=== PATIENT | male | born 1995 | race Caucasian/White ===

== ENCOUNTER 2023-12-24 12:20 | Emergency (ER) | payer MEDICAID, SELFPAY ==
[2023-12-24 12:23] VITALS: BP 177/92; PULSE 120; TEMP 36.9; O2SAT 98; BMI 36.0
--- NOTE | 2023-12-24 12:33 | ED.DENTAL1 ---
HPI - Dental/Oral General Chief complaint: Dental/Oral Stated complaint: ABSCESS Time Seen by Provider: 12/24/23 12:25 Source: patient Mode of arrival: walk-in Limitations: no limitations History of Present Illness HPI Narrative: Patient is a angle of pain in his jaw area. Several nights ago he had a lot of discomfort in his lower right mid mandibular area but he says is not too bad right now. He just recently got a medical card and he knows he is got a lot of dental problems. He is hopeful to get into see a dentist since now he has this medical insurance. He has not run a fever. He does not have any difficulty swallowing. There is no obvious swelling of his face. He is not on any current antibiotics. He has not seen a dentist recently. Related Data Allergies Allergy/AdvReac Type Severity Reaction Status Date / Time No Known Drug Allergies Allergy Verified 12/24/23 12:27 Exam Narrative Exam Narrative: Well-hydrated well-nourished no obvious distress. Phonation swallowing respiratory effort is all normal. He has no tenderness or swelling of his right TM. The TM appears normal. He has no pain with pulling on the pinna or pushing on the tragus. No tenderness over the TMJ. He does have dental tenderness with percussion over teeth #3130 and 32. There is no intraoral abscess. There is no swelling of the gingival area. Constitutional Vital Signs, click to edit/add: Last Vital Signs Temp 98.5 F 12/24/23 12:23 Pulse 120 H 12/24/23 12:23 Resp 18 12/24/23 12:23 BP 177/92 H 12/24/23 12:23 Pulse Ox 98 12/24/23 12:23 O2 Del Method Room Air 12/24/23 12:23 Course Vital Signs Vital signs: Vital Signs Temperature 98.5 F 12/24/23 12:23 Pulse Rate 120 H 12/24/23 12:23 Respiratory Rate 18 12/24/23 12:23 Blood Pressure 177/92 H 12/24/23 12:23 Pulse Oximetry 98 12/24/23 12:23 Oxygen Delivery Method Room Air 12/24/23 12:23 Temperature 98.5 F 12/24/23 12:23 Pulse Rate 120 H 12/24/23 12:23 Respiratory Rate 18 12/24/23 12:23 Blood Pressure 177/92 H 12/24/23 12:23 Pulse Oximetry 98 12/24/23 12:23 Oxygen Delivery Method Room Air 12/24/23 12:23 MDM - Dental/Oral MDM Narrative Medical decision making narrative: Patient here with overall very poor dental hygiene especially on the maxillary area he is asymptomatic in this area but does have point tenderness with no obvious abscess on the roll lower right mid mandibular area. Will start him on clindamycin and he is planning on following up with dental evaluation Discharge Plan Discharge Stand Alone Forms: Portal Instructions Chief Complaint: Dental/Oral Clinical Impression: Toothache Patient Disposition: Home, Self-Care Time of Disposition Decision: 12:35 Print Language: Portuguese Additional Instructions: Clindamycin/start penicillin if that is too expensive. Use [id number] NSAIDs such as Aleve or ibuprofen/see dentist NASH Referrals: SHAZIA MORA [Primary Care Provider] - 1 week
== END 2023-12-24 12:45 | disposition home or self-care (01) ==
PROVIDERS: Emergency Provider Emergency Medicine Emergency Medical Services; PCP Internal Medicine Gastroenterology
DX: K08.89 Other specified disorders of teeth and supporting structures (principal)
CPT/HCPCS: 99283

== ENCOUNTER 2024-04-10 12:49 | Outpatient (OUT) | payer MEDICAID, SELFPAY ==
--- NOTE | 2024-04-10 12:54 | FL_ITS ---
The [address] [address] Patient Name: JAMES ACEVEDO MRN: [id number] date: 1995 Sex: M Assigned Patient Location: [place] Current Patient Location: [place] Accession/Order Number: [id number] Exam Date: 04/10/2024 13:15 Report Date: 04/10/2024 14:08 At the request of: DAYLIN SANCHEZ Procedure: FL modified barium swallow EXAMINATION: FL modified barium swallow HISTORY: difficulty swallowing R13.10 COMPARISON: No relevant comparison available. TECHNIQUE: A swallowing evaluation was performed with fluoroscopy in the usual manner. Standard level fluoroscopic mode of operation utilized. FINDINGS: ORAL PHASE: Normal deglutition. PHARYNGEAL PHASE: Normal swallowing. ASPIRATION: None. STRUCTURE: Normal. No visible obstruction, stricture, or dilatation. OTHER: Negative. FL/FL modified barium swallow IMPRESSION: Relatively normal study. Please see speech pathologist report for further discussion. Electronically authenticated by: FANNY QUACH Date: 04/10/2024 14:08
== END 2024-04-10 12:50 | disposition home or self-care (01) ==
LOC: FL 12:50
PROVIDERS: PCP Nurse Practitioner; Visit Provider Nurse Practitioner
DX: R13.10 Dysphagia, unspecified (principal)
CPT/HCPCS: 74230; 92611

== ENCOUNTER 2024-05-31 03:01 | Emergency (ER) | payer MEDICAID, SELFPAY ==
--- OUTSIDE RECORDS SUMMARY | 2024-05-31 03:16 | XMS_ITS | CCD ---
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 Name Role Phone BRANDO JEFFREY Attending Unavailable Karime, Loreto Lechuga Primary Care Physician Karime, DRAWER WAXER Loreto L Attending Unavailable Karime, DRAWER WAXER Loreto L Attending Unavailable Karime, DRAWER WAXER Loreto L Attending Unavailable Karime, DRAWER WAXER Loreto L Attending Unavailable Karime, DRAWER WAXER Loreto L Admitting Unavailable Karime, DRAWER WAXER Loreto L Referring Unavailable Karime, DRAWER WAXER Loreto L Attending Unavailable Agustín Manjarrez Attending Unavailable Karime, DRAWER WAXER Loreto L Attending Unavailable Allergies Allergy Classification Reported Allergen(s) Allergy Type Date of Onset Reaction(s) Facility Erythromycin / sulfiSOXAZOLE (1 source) Erythromycin / sulfiSOXAZOLE; Translations: [erythromycin-sul fisoxazole] Drug Allergy Anaphylaxis (disorder), Tongue swelling (finding) [facility] (2 sources) Erythromycin / sulfiSOXAZOLE; Translations: [Pediazole] Drug Allergy [facility] Medications Current Medications Medication Drug Class(es) Dates Sig (Normalized) Sig (Original) omeprazole 40 mg delayed release oral capsule (1 source) Proton Pump Inhibitor Start: 01-18-2024 take 1 capsule by mouth once daily omeprazole 40 mg Cap-DR 40 mg = 1 cap(s), Oral, Daily, # 90 cap(s), Refills(s) 3, Pharmacy: [id number], 166.8, cm, 01/18/24 13:14:00 EDT, Height/Length Dosing, 91.6, kg, 01/18/24 13:14:00 EDT, Weight Dosing Start Date: 01/18/24 Status: Ordered Problems Problem Classification Problem Date Documented Da te Episodic/Chronic Acute myocardial infarction (1 source) Myocardial infarction 01-18-2024 Chronic Anxiety disorders (1 source) Anxiety 01-18-2024 Chronic Asthma (1 source) Asthma 12-05-2013 Chronic Esophageal disorders (2 sources) Gastroesophageal reflux disease 12-05-2013 Chronic Headache; including migraine (1 source) Chronic headache disorder 01-18-2024 Episodic Heart valve disorders (1 source) Heart murmur 01-18-2024 Episodic Malignant neoplasm without specification of site (1 source) Malignant neoplastic disease 01-18-2024 Chronic Other eye disorders (1 source) Pain in eye 12-05-2013 Episodic Other gastrointestinal disorders (1 source) Altered bowel function 02-15-2024 Episodic Other injuries and conditions due to external causes (1 source) Injury of nose 01-18-2024 Episodic Karin-; endo-; and myocarditis; cardiomyopathy (except that caused by tuberculosis or sexually transmitted disease) (1 source) Heart valve disorder 12-05-2013 Chronic Residual codes; unclassified (1 source) Insomnia 01-18-2024 Episodic Substance-related disorders (2 sources) History of drug abuse; Translations: [Smoker] 01-18-2024 Chronic Comment on above: Added secondary to d ocumentation in Social History. Unclassified (1 source) Finding of sensation of abdomen 01-18-2024 Results Test Name Value Interpretation Reference Range [facility] Office/Clini c Noteon 03-14-2024 Family Medicine Office/Clinic Note Chief Complaint Patient here to discuss results C/O GERD sysptoms and dizziness sometimes HPI Staff Demario is a 28 year old male presenting to discuss results Pt had CT on 02/29/24 History of Present Illness pt presents today to go over ct results Review of Systems PHQ Score Initial Depression Screen Score: 0 SCORE Physical Exam Vitals & Measurements T: 36.4 ?C(Oral) HR: 78(Peripheral) BP: 128/78 HT: 66 in HT: 167.7 cm WT: 93.6 kg WT: 205.92 lb BMI: 33.28 General: alert, no acute distress ENMT: oral mucosa moist, no pharyngeal erythema or exudate Cardiovascular: regular rate and rhythm, normal peripheral perfusion Respiratory: Lungs CTA, respirations non labored Extremities: no deformity, no trauma Neurological: oriented x 4, LOC appropriate for age, CN II-XII intact, motor strength equal & normal bilaterally, speech normal Assessment/Plan 1. Difficulty swallowing (R13.10: Dysphagia, unspecified) barium swallow study ordered through [facility]. pt to call GI back since he canceled his appointment on 02/27. he feels like things just get stuck when eating. he has to have a drink at all times when eating. RTC 4 weeks Ordered: albuterol, 2 puff(s), Inhalation, q6hr, 8.5 gm, Refill(s) 0, [id number], 167.6, cm, 03/14/24 10:31:00 EDT, Height/Length Dosing, 93.6, kg, 03/14/24 10:31:00 EDT, Weight Dosing cefdinir, 300 mg = 1 cap(s), Oral, q12hr, X 21 day(s), # 42 cap(s), Refills(s) 0, Pharmacy: [id number], 167.6, cm, 03/14/24 10:31:00 EDT, Height/Length Dosing, 93.6, kg, 03/14/24 10:31:00 EDT, Weight Dosing 2. Shortness of breath (R06.02: Shortness of breath) albuterol inhaler sent to pharmacy Ordered: albuterol, 2 puff(s), Inhalation, q6hr, 8.5 gm, Refill(s) 0, [id number], 167.6, cm, 03/14/24 10:31:00 EDT, Height/Length Dosing, 93.6, kg, 03/14/24 10:31:00 EDT, Weight Dosing cefdinir, 300 mg = 1 cap(s), Oral, q12hr, X 21 day(s), # 42 cap(s), Refills(s) 0, Pharmacy: [id number], 167.6, cm, 03/14/24 10:31:00 EDT, Height/Length Dosing, 93.6, kg, 03/14/24 10:31:00 EDT, Weight Dosing 3. Chronic sinusitis of both maxillary sinuses (J32.0: Chronic maxillary sinusitis) CT results Bilateral sinusitis. will order antibiotic for 21 days. RTC 4 weeks to monitor symptoms Ordered: albuterol, 2 puff(s), Inhalation, q6hr, 8.5 gm, Refill(s) 0, [id number], 167.6, cm, 03/14/24 10:31:00 EDT, Height/Length Dosing, 93.6, kg, 03/14/24 10:31:00 EDT, Weight Dosing cefdinir, 300 mg = 1 cap(s), Oral, q12hr, X 21 day(s), # 42 cap(s), Refills(s) 0, Pharmacy: [facility]/pharm[id number], 167.6, cm, 03/14/24 10:31:00 EDT, Height/Length Dosing, 93.6, kg, 03/14/24 10:31:00 EDT, Weight Dosing 4. BMI 33.0-33.9,adult (Z68.33: Body mass index [BMI] 33.0-33.9, adult) BMI edcuation 5. Obese (E66.9: Obesity, unspecified) see above Follow-up No qualifying data available Problem List/Past Medical History Ongoing Abdominal cramping Acid reflux Aesthesioneurocytoma Anxiety BMI 33.0-33.9,adult Bowel habit changes Chronic GERD Chronic headaches Chronic sinusitis of both maxillary sinuses Difficulty swallowing Eye pain Heart attack Heart murmur History of drug use Insomnia Nasal trauma Obese Shortness of breath Smoker Historical Asthma Heart valve disorder Procedure/Surgical History Ingrown toenail... Medications Albuterol (Eqv-ProAir HFA) 90 mcg/inh inhalation aerosol, 2 puff(s), Inhalation, q6hr cefdinir 300 mg Cap, 300 mg= 1 cap(s), Oral, q12hr omeprazole 40 mg Cap-DR, 40 mg= 1 cap(s), Oral, Daily, 3 refills Allergies Pediazole (Anaphylaxis, Tongue swelling) Social History Alcohol Past, Beer, Wine, Liquor, 1-2 times per week, Alcohol use interferes with work or home: Yes. Drinks more than intended: Yes. Others hurt by drinking: No. Ready to change: No. Household alcohol concerns: No., 03/14/2024 Substance Abuse Past, Marijuana, 01/18/2024 Tobacco Former smoker, quit more than 30 days ago Tobacco Use:. Cigarettes, 14 year(s). Ready to change: No., 03/14/2024 Family History Anxiety: Mother. Epilepsy: Uncle. Schizophrenia: Mother. Stroke: Aunt and Grandparent. Immunizations Vaccine Date Status Comments SARS-CoV-2 (COVID-19) mRNA BNT-162b2 vax 10/11/2020 Recorded SARS-CoV-2 (COVID-19) mRNA BNT-162b2 vax 09/20/2020 Recorded diphtheria/pertussis , acel/tetanus adult 05/28/2011 Given Nursing Judgment [facility] Comment on above: Result Comment: Elec tronically Signed By: Loreto Sosa\.br\Date and Time Signed: 03/14/24 11:[address] Maxillofacial w/o Contras ton 03-01-2024 CT Maxillofacial w/o Contrast Exam Date/Time: 02/29/2024 17:28 EDT Reason for Exam: Nasal abscess;Other (please specify) Report Impression: Bilateral maxillary and ethmoid sinusitis as discussed CT Brain. Contrast medium: without contrast.. History: Facial congestion.. Technical factors: CT maxillofacial was obtained and formatted as 1 mm axial images. Sagittal and coronal reconstruction obtained during postprocessing. Radiopaque cutaneous marker placed anterior to base right maxillary sinus. Comparison: None. Findings: Frontal sinuses patent. Mild bilateral opacification ethmoid sinuses. Sphenoid sinuses patent. Mild bilateral mucosal thickening maxillary sinuses. Imaged portions mastoid air cells well pneumatized. Nasal septum midline. Right ostiomeatal complex patent. Ostiomeatal complex shows mucosal thickening. No fracture. No bone lesion. Bilateral ocular globes, extraocular muscles, optic nerves, retrobulbar fat without anomaly. All CT scans at this facility use dose modulation, iterative reconstruction, and/or weight based dosing when appropriate to reduce radiation dose to as low as reasonably achievable. Report Ordering Provider: Loreto Schaffer FINAL REPORT Dictated: 03/01/2024 4:30 pm Kwame Bob MD Signed (Electronic Signature): 03/01/2024 4:30 pm Signed by: Kwame Bob MD Transcribed by: ARNEL Technologist: [facility] Consent for Treatmenton Consent for Treatment [id number] #[id number] Normal [facility] Medicine Office/Clini c Noteon 02-15-2024 [facility] Medicine Office/Clinic Note HPI Staff Demario is a 28 year old male presenting for 1 month follow up NIKHIL 01/18/24 Abdominal cramping started omeprazole Pt states he never started the omeprazole and one day after the NIKHIL he started having intermittent mucous in stool. Pt continues to have abdominal cramping. Denies any blood in stool. Intermittent loose/diarrhea stool to sometimes normal. History of Present Illness pt follows up for GI issues Review of Systems PHQ Score Initial Depression Screen Score: 0 SCORE Physical Exam Vitals & Measurements HR: 112(Peripheral) RR: 18 BP: 168/88 SpO2: 99% HT: 66 in HT: 166.8 cm WT: 92.9 kg WT: 204.38 lb BMI: 33.39 General: alert, no acute distress ENMT: oral mucosa moist, no pharyngeal erythema or exudate Cardiovascular: regular rate and rhythm, normal peripheral perfusion Respiratory: Lungs CTA, respirations non labored Extremities: no deformity, no trauma Neurological: oriented x 4, LOC appropriate for age, CN II-XII intact, motor strength equal & normal bilaterally, speech normal Assessment/Plan 1. Bowel habit changes (R19.4: Change in bowel habit) pt used to have BM every couple of days. now having up to 5-10 per day now. has noticed a lot of mucous in stool Ordered: [facility] Amb[facility] Referral 2. Abdominal cramping (R10.9: Unspecified abdominal pain) pt did not start taking medication Ordered: [facility] Ambulatory Referral 3. Chronic GERD (K21.9: Gastro-esophageal reflux disease without esophagitis) did not start omeprazole Ordered: [facility] Internal Ambulatory Referral 4. Smoker (F17.200: Nicotine dependence, unspecified, uncomplicated) consider not smoking Ordered: [facility] Internal Ambulatory Referral 5. BMI 32.0-32.9,adult (Z68.32: Body mass index [BMI] 32.0-32.9, adult) BMI education complete Ordered: [facility] Internal Ambulatory Referral Follow-up No qualifying data available Problem List/Past Medical History Ongoing Abdominal cramping Acid reflux Aesthesioneurocytoma Anxiety Bowel habit changes Chronic GERD Chronic headaches Eye pain Heart attack Heart murmur History of drug use Insomnia Nasal trauma Smoker Historical Asthma Heart valve disorder Procedure/Surgical History Ingrown toenail... Medications omeprazole 40 mg Cap-DR, 40 mg= 1 cap(s), Oral, Daily, 3 refills Allergies Pediazole (Anaphylaxis, Tongue swelling) Social History Alcohol Current, Beer, Wine, Liquor, 1-2 times per week, Alcohol use interferes with work or home: Yes. Drinks more than intended: Yes. Others hurt by drinking: No. Ready to change: No. Household alcohol concerns: No., 01/18/2024 Substance Abuse Past, Marijuana, 01/18/2024 Tobacco 10 or more cigarettes (1/2 pack or more)/day in last 30 days Tobacco Use:. Cigarettes, 14 year(s). Ready to change: No., 02/15/2024 Family History Anxiety: Mother. Epilepsy: Uncle. Schizophrenia: Mother. Stroke: Aunt and Grandparent. Immunizations Vaccine Date Status Comments SARS-CoV-2 (COVID-19) mRNA BNT-162b2 vax 10/11/2020 Recorded SARS-CoV-2 (COVID-19) mRNA BNT-162b2 vax 09/20/2020 Recorded diphtheria/pertussis , acel/tetanus adult 05/28/2011 Given Nursing Judgment [facility] Comment on above: Result Comment: Elec tronically Signed By: Loreto Sosa\.br\Date and Time Signed: 02/15/24 15:02 EDT Ambulatory Visit Summaryon 0 01-18-2024 Ambulatory Visit Summary DEMARIO ACEVEDO JR :1995 Visit Date:01/18/2024 Ambulatory Visit Instructions Your Diagnosis Chronic GERD Abdominal cramping History of drug use BMI 32.0-32.9,adult Heavy smoker Your Care Team Attending Physician - Loreto Sosa Primary Care Physician - Loreto Sosa This Is Your Medications List omeprazole (Omeprazole 20 mg Cap - DR) Procedures Performed Ingrown toenail... Discharge Vitals Heart Rate (Peripheral) 104 Respiratory Rate 18 Blood Pressure 130/84 Height 166.8 cm Height 66 in Weight 91.6 kg Weight 201.52 lb BMI 32.92 What to do next Scheduled Follow-Up Appointments Sunday 2:40 PM EDT With: Loreto Sosa Where: [facility] Missy Normal [facility] Office/Clini c Noteon 01-18-2024 Family Medicine Office/Clinic Note HPI Staff Demario is a 28 year old male presenting to establish care Establish Care: History: Any previous diagnosis: Anxiety, Asthma, Drug dependency, Alcohol, headaches, heart murmur, insomnia, Bicuspid heart valve(aorta), Gerd History of seeing any specialist: hasn't seen a 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 Pt states he does have bad teeth, pt is calling set up an appointment with dentist. Has abscess right lower side of both back molar went to [facility] 12/24/23 Did start him on Clindamycin and completed ATB. Does have lump on right side of neck under jaw would like looked at it. Pt states when he was 14 he was snorting pills on left side and he has been clean for 11 year. pt states intermittently when he eats sometimes food will feels like food get stuck and nose and sometime comes out left eye. He feels like his left side of nose is always stuffed up. pt has never seen ENT History of Present Illness pt presents today to establish care Review of Systems PHQ Score Initial Depression Screen Score: 0 SCORE Physical Exam Vitals & Measurements HR: 104(Peripheral) RR: 18 BP: 130/84 SpO2: 95% HT: 66 in HT: 166.8 cm WT: 91.6 kg WT: 201.52 lb BMI: 32.92 General: alert, no acute distress ENMT: oral mucosa moist, no pharyngeal erythema or exudate Cardiovascular: regular rate and rhythm, normal peripheral perfusion Respiratory: Lungs CTA, respirations non labored Extremities: no deformity, no trauma Neurological: oriented x 4, LOC appropriate for age, CN II-XII intact, motor strength equal & normal bilaterally, speech normal Assessment/Plan 1. Chronic GERD (K21.9: Gastro-esophageal reflux disease without esophagitis) needs refills on medicaiton 2. Abdominal cramping (R10.9: Unspecified abdominal pain) pt having difficulty passing gas. has tried taking gas-x but that makes it worse. he has to manually push on his stomach to get gas to move. RTC 4 weeks for follow up 3. 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 will refer to ENT after CT results are back 4. Nasal trauma (S09.92XA: Unspecified injury of nose, initial encounter) pt snorting drugs through left side of nostril for many years. Has been clean for 11 years. but has not had insurance until recently. 5. BMI 32.0-32.9,adult (Z68.32: Body mass index [BMI] 32.0-32.9, adult) BMI education complete 6. Heavy smoker (F17.200: Nicotine dependence, unspecified, uncomplicated) consider not smoking Follow-up No qualifying data available Problem List/Past Medical History Ongoing Abdominal cramping Acid reflux Aesthesioneurocytoma Anxiety Chronic GERD Chronic headaches Eye pain Heart attack Heart murmur History of drug use Insomnia Nasal trauma Smoker Historical Asthma Heart valve disorder Procedure/Surgical History Ingrown toenail... Medications Omeprazole 20 mg Cap - DR, 20 mg, Oral, Daily Allergies Pediazole (Anaphylaxis, Tongue swelling) Social History Alcohol Current, Beer, Wine, Liquor, 1-2 times per week, Alcohol use interferes with work or home: Yes. Drinks more than intended: Yes. Others hurt by drinking: No. Ready to change: No. Household alcohol concerns: No., 01/18/2024 Substance Abuse Past, Marijuana, 01/18/2024 Tobacco 10 or more cigarettes (1/2 pack or more)/day in last 30 days Tobacco Use:. Cigarettes, 14 year(s). Ready to change: No., 01/18/2024 Family History Anxiety: Mother. Epilepsy: Uncle. Schizophrenia: Mother. Stroke: Aunt and Grandparent. Immunizations Vaccine Date Status Comments SARS-CoV-2 (COVID-19) mRNA BNT-162b2 vax 10/11/2020 Recorded SARS-CoV-2 (COVID-19) mRNA BNT-162b2 vax 09/20/2020 Recorded diphtheria/pertussis , acel/tetanus adult 05/28/2011 Given Nursing Judgment [facility] Comment on above: Result Comment: Elec tronically Signed By: Karime DRAWER WAXER, Loreto L\.br\Date and Time Signed: 01/18/24 13:54 EDT Insurance Correspondenceon 0 01-18-2024 Insurance Correspondence [id number] 1#1.00TIFF Normal [facility] XR CHEST (2 VW)on 02-15-2019 XR CHEST (2 VW) XR CHEST (2 VW): HISTORY: Chest pain with inspiration, decreased breath sounds lower lung rust. COMPARISON: None. FINDINGS: Frontal and lateral views of the chest are provided. The cardiomediastinal silhouette is unremarkable. The lungs are normally aerated. There is no focal infiltrate, pleural effusion, or pneumothorax present. The bones appear unremarkable. IMPRESSION: Negative acute chest. Interpreted by: Aman Knowles MD Signed by: Aman Knowles MD 02/15/19 Final result Normal [facility] Encounters Encounter Date Encounter Type Care Provider Facility Start: 05-08-2024 ambulatory DRAWER WAXER Loreto L Karime Facil ity:[facility] Start: 04-22-2024 End: 04-22-2024 ambulatory DRAWER WAXER Loreto L Karime Facility:[facility] Start: 03-14-2024 End: 03-14-2024 ambulatory DRAWER WAXER Loreto L Karime Facility:[facility] Start: 02-29-2024 End: 02-29-2024 ambulatory DRAWER WAXER Loreto L Karime Facility:[facility] Start: 02-29-2024 End: 02-29-2024 Patient encounter procedure Loreto L Karime [facility] Start: 02-25-2024 ambulatory Agustín Logan lity:Analia meraz Start: 02-19-2024 ambulatory DRAWER WAXER Loreto Karime Facilit y:Analia meraz Start: 02-15-2024 End: 02-15-2024 ambulatory DRAWER WAXER Loreto L Karime Facility:[facility] Start: 01-18-2024 End: 01-18-2024 ambulatory DRAWER WAXER Loreto L Karime Facility:[facility] Start: 01-15-2024 ambulatory DRAWER WAXER Loreto Karime Facilit y:[facility] Start: 02-14-2019 End: 02-14-2019 Emergency department patient visit CARRIETERRIBENNIE JEFFREY [facility] Procedures Date Procedure Procedure Detail Performing Clinician Start: 02-14-2019 Radiologic exam ches t 2 views BRANDO WOJCIECH Ingrowing nail (disorder) Olivia di Karime Immunizations Immunization Date Immunization Notes Care Provider Fa cility 10-11-2020 SARS-CoV-2 (COVID-19 ) mRNA BNT-162b2 vax Loreto Karime [facility] 09-20-2020 SARS-CoV-2 (COVID-19 ) mRNA BNT-162b2 vax Loreto Karime [facility] 05-28-2011 tetanus toxoid, redu michele diphtheria toxoid, and acellular pertussis vaccine, adsorbed Loreto Karime [facility] Comment on above: Early/Late Reason: N ursing Judgment Payers Date Payer Category Payer Self-pay 2019 Medicaid [id number] 1995 Unknown [id number] 2.16.84 [id number] 1995 Unknown [id number] 2.16.8 [id number] 1995 Unknown [id number] 2.16.8 [id number] 1995 Unknown [id number] 2.16.8 [id number] 1993 Unknown [id number] 2.16.8 [id number] 1995 Unknown [id number] 2.16.8 [id number] 1993 Unknown [id number] 2.16.8 [id number] 1995 Unknown [id number] 2.16.8 [id number] 1995 Unknown [id number] 2.16.8 [id number] Social History Date Type Detail Facility Start: 02-15-2024 Tobacco smoking status Heavy t obacco smoker (finding) [facility] [place] Sex Assigned At Male [facility] Evaluation + Plan note Note Date & Type Note Facility Evaluation + Plan note No data available for this section [facility] Hospital Discharge instructions Note Date & Type Note Facility Hospital Discharge instructions No data available for this section [facility] Progress note Note Date & Type Note Facility Progress note No data available for this section [facility] Summary Purpose Family History No Family History Records Found No data available for this section No Family History Records Found Advance Directives No Advanced Directives Records FoundNo Advanced Directives Records Found Additional Source Comments (unrecognized sect ion and content) No Status Records FoundNo Status Records Found INFORMATION SOURCE (unrecogn ized section and content) DATE CREATED AUTHOR 02/25/2019 Simran mcguire DATE CREATED AUTHOR AUTHOR'S ORGANIZ ATION 04/25/2024 [facility] Patient Care team informatio n (unrecognized section and content) Personnel Name: Loreto Sosa Address: Address: [address] [place] [address]- FOR RECORDS PERTAINING TO PATIENTS WHO ARE OR HAVE BEEN ENROLLED IN A CHEMICAL DEPENDENCY/SUBSTANCEABUSE PROGRAM, SOME INFORMATION MAY BE OMITTED. This clinical summary was aggregated from multiple sources. Caution should be exercised in using it in the provision of clinical care. This summary normalizes information from multiple sources, and as a consequence, information in this document may materially change the coding, format and clinical context of patient data. In addition, data may be omitted in some cases. CLINICAL DECISIONS SHOULD BE BASED ON THE PRIMARY CLINICAL RECORDS. [facility]. provides no warranty or guarantee of the accuracy or completeness of information in this document.
[2024-05-31 03:20] VITALS: BP 145/96; PULSE 100; TEMP 36.9; O2SAT 97; BMI 33.7
--- NOTE | 2024-05-31 03:44 | ED.ABDPAIN1 ---
HPI - Abdominal Pain General Chief Complaint: Abdominal Pain Stated Complaint: abd pain Time Seen by Provider: 05/31/24 03:26 Source: patient Mode of arrival: walk-in Limitations: no limitations History of Present Illness HPI narrative: presents complaining of pain of his left CVA and LUQ. He then holds his left lower rib cage as site of pain. States started yesterday AM and has continued but not as intense as initially. Has not vomited but describes his food feeling like it wanted to come back up. History of GERD for which he takes prilosec. No dyspnea. No fever or urinary complaint Related Data Allergies Allergy/AdvReac Type Severity Reaction Status Date / Time No Known Drug Allergies Allergy Verified 05/31/24 03:20 Review of Systems ROS Status of ROS 10 or more systems reviewed and unremarkable except as noted in history and below PFSH PFSH Social History Little interest or pleasure in doing things: not at all Feeling down, depressed, or hopeless: not at all Exam Constitutional Vital Signs, click to edit/add: Last Vital Signs Temp 98.5 F 05/31/24 03:20 Pulse 100 H 05/31/24 03:20 Resp 18 05/31/24 03:20 BP 145/96 H 05/31/24 03:20 Pulse Ox 97 05/31/24 03:20 O2 Del Method Room Air 05/31/24 03:20 Common normals: no apparent distress, average body habitus, oriented x3, no limitations, healthy appearing, alert and well nourished [facility] Common normals: normocephalic and head/scalp atraumatic Eye Common normals: PERRL and EOMs intact bilaterally Respiratory Common normals: normal respiratory effort and no retractions Cardio Common normals: regular rate, regular rhythm, S1 normal heart sound and S2 normal heart sound GI Common normals: Normal to inspection, nondistended, normoactive bowel sounds present, soft to palpation and non-tender Back & Pelvis Common normals: no CVA tenderness Extremity Common normals: normal to inspection and full ROM Neuro Common normals: oriented x3, CN's II-XII intact bilaterally and moves all extremities Psych Appearance: grossly normal Course Vital Signs Vital signs: Vital Signs Temperature 98.5 F 05/31/24 03:20 Pulse Rate 100 H 05/31/24 03:20 Respiratory Rate 18 05/31/24 03:20 Blood Pressure 145/96 H 05/31/24 03:20 Pulse Oximetry 97 05/31/24 03:20 Oxygen Delivery Method Room Air 05/31/24 03:20 Temperature 98.5 F 05/31/24 03:20 Pulse Rate 100 H 05/31/24 03:20 Respiratory Rate 18 05/31/24 03:20 Blood Pressure 145/96 H 05/31/24 03:20 Pulse Oximetry 97 05/31/24 03:20 Oxygen Delivery Method Room Air 05/31/24 03:20 MDM - Abdominal Pain MDM Narrative Medical decision making narrative: patient presents with abdominal pain but points to the lower left chest area also. He is a poor historian. exam with mild LUQ tenderness. No fever or urinary symptoms. CT studies of chest and abdomen neg and labs neg as well. Patient discharged home to follow up with his doctor Lab Data Labs: Lab Results 05/31/24 05/31/24 Range/Units 03:55 04:00 WBC 7.8 (4.0-11.0) 10^3/uL RBC 5.67 (4.70-6.10) 10^6/uL Hgb 16.8 (14.0-18.0) g/dL Hct 49.3 (42.0-54.0) % MCV 86.9 (80.0-94.0) fL MCH 29.6 (25.9-34.0) pg MCHC 34.1 (29.9-35.2) g/dL RDW 12.4 (11.0-15.0) % Plt Count 218 (150-450) 10^3/uL MPV 10.5 (9.5-13.5) fL Neut % (Auto) 59.5 (43.0-75.0) % Lymph % (Auto) 25.4 (20.5-60.0) % [place] % (Auto) 10.3 (1.7-12.0) % Eos % (Auto) 3.2 (0.9-7.0) % Baso % (Auto) 1.3 (0.2-2.0) % Neut # (Auto) 4.7 (1.4-6.5) 10^3/uL Lymph # (Auto) 2.0 (1.2-3.8) 10^3/uL [place] # (Auto) 0.8 (0.3-0.8) 10^3/uL Eos # (Auto) 0.3 (0.0-0.7) 10^3/uL Baso # (Auto) 0.1 (0.0-0.1) 10^3/uL Abs Immat Gran (auto) 0.02 (0.00-0.03) 10^3/uL Imm/Tot Granulo (auto) 0.3 (0.0-0.5) % Sodium 137 (136-145) mmol/L Potassium 3.8 (3.5-5.1) mmol/L Chloride 98 (98-107) mmol/L Carbon Dioxide 31.5 (21.0-32.0) mmol/L Anion Gap 11.3 BUN 9.0 (7.0-18.0) mg/dL Creatinine 1.21 (0.70-1.30) mg/dL Est GFR ( Amer) >60 (>=60) Est GFR (Non-Af Amer) >60 (>=60) BUN/Creatinine Ratio 7.4 Glucose 104 (74-106) mg/dL Lactate 1.0 (0.4-2.0) mmol/L Calcium 9.2 (8.5-10.1) mg/dL Total Bilirubin 0.7 (0.2-1.0) mg/dL AST 22 (15-37) U/L ALT 51 (16-63) U/L Alkaline Phosphatase 94 (46-116) U/L Troponin I High Sens <4.0 L (4.0-76.1) pg/mL Total Protein 7.7 (6.4-8.2) g/dL Albumin 4.2 (3.4-5.0) g/dL Globulin 3.5 g/dL Albumin/Globulin Ratio 1.2 Urine Color Lt. yellow (YELLOW) Urine Clarity Clear (CLEAR) Urine pH 6.0 (5.0-9.0) Ur Specific [place] <=1.005 A (1.005-1.025) Urine Protein Negative (NEG/TRACE) mg/dL Urine Glucose (UA) Negative (NEGATIVE) mg/dL Urine Ketones Negative (NEGATIVE) mg/dL Urine Occult Blood Negative (NEGATIVE) Urine Nitrite Negative (NEGATIVE) Urine Bilirubin Negative (NEGATIVE) Urine Urobilinogen 0.2 (0.2-1.0) EU/dL Ur Leukocyte Esterase Negative (NEGATIVE) Discharge Plan Discharge Chief Complaint: Abdominal Pain Clinical Impression: Abdominal pain Patient Disposition: Home, Self-Care Mode of Transportation: Private Vehicle Print Language: [place]er Instructions: Abdominal Pain (ED) Referrals: DAYLIN SANCHEZ [Primary Care Provider] - 1 week
--- NOTE | 2024-05-31 03:47 | CT_ITS ---
[address] [address] Patient Name: JAMES ACEVEDO MRN: [id number] date: 1995 Sex: M Assigned Patient Location: ER Current Patient Location: ER Accession/Order Number: [id number] Exam Date: 05/31/2024 04:08 Report Date: 05/31/2024 05:18 At the request of: CHELSI KOTHARI Procedure: CT angio chest EXAMINATION: CT angio chest, CT abdomen pelvis w con HISTORY: left sided pain COMPARISON: No relevant comparison available. TECHNIQUE: Axial, Coronal, and Sagittal CT images were obtained without and with IV contrast. Dose reduction techniques were achieved by using automated exposure control and/or adjustment of mA and/or kV according to patient size and/or use of iterative reconstruction technique. FINDINGS: LUNGS: No visible pulmonary disease. PLEURA: No mass or effusion. VASCULATURE: No visible pulmonary arterial thrombus or attenuation. TANYA: No mass or adenopathy. MEDIASTINUM: No mass or adenopathy. CARDIAC: No enlargement or pericardial effusion Coronary arteries: Absent calcification CHEST WALL: No mass or axillary adenopathy. LIVER: No enlargement, atrophy, abnormal density, or significant focal lesion. BILIARY: No dilatation or calcification. PANCREAS: No lesion, fluid collection, ductal dilatation, or atrophy. SPLEEN: No enlargement or focal lesion. ADRENALS: No mass or enlargement. KIDNEYS: No mass, obstruction, or calcification. BOWEL/MESENTERY: No visible mass, obstruction, or bowel wall thickening. Normal appendix AORTA/VASCULAR: No aortic aneurysm or dissection RETROPERITONEUM: No mass or adenopathy. ABDOMINAL WALL: No mass or hernia. BONES: No bony lesion or fracture. OTHER: Negative. CT/CT angio chest IMPRESSION: No central pulmonary thromboembolic disease Clear lungs No acute intraperitoneal abnormality No aortic aneurysm or dissection Electronically authenticated by: KRISTEN CALDERA Date: 05/31/2024 05:18
--- NOTE | 2024-05-31 03:47 | CT_ITS ---
[address] [address] Patient Name: JAMES ACEVEDO MRN: [id number] date: 1995 Sex: M Assigned Patient Location: ER Current Patient Location: ER Accession/Order Number: [id number] Exam Date: 05/31/2024 04:08 Report Date: 05/31/2024 05:18 At the request of: CHELSI KOTHARI Procedure: CT abdomen pelvis w con EXAMINATION: CT angio chest, CT abdomen pelvis w con HISTORY: left sided pain COMPARISON: No relevant comparison available. TECHNIQUE: Axial, Coronal, and Sagittal CT images were obtained without and with IV contrast. Dose reduction techniques were achieved by using automated exposure control and/or adjustment of mA and/or kV according to patient size and/or use of iterative reconstruction technique. FINDINGS: LUNGS: No visible pulmonary disease. PLEURA: No mass or effusion. VASCULATURE: No visible pulmonary arterial thrombus or attenuation. TANYA: No mass or adenopathy. MEDIASTINUM: No mass or adenopathy. CARDIAC: No enlargement or pericardial effusion Coronary arteries: Absent calcification CHEST WALL: No mass or axillary adenopathy. LIVER: No enlargement, atrophy, abnormal density, or significant focal lesion. BILIARY: No dilatation or calcification. PANCREAS: No lesion, fluid collection, ductal dilatation, or atrophy. SPLEEN: No enlargement or focal lesion. ADRENALS: No mass or enlargement. KIDNEYS: No mass, obstruction, or calcification. BOWEL/MESENTERY: No visible mass, obstruction, or bowel wall thickening. Normal appendix AORTA/VASCULAR: No aortic aneurysm or dissection RETROPERITONEUM: No mass or adenopathy. ABDOMINAL WALL: No mass or hernia. BONES: No bony lesion or fracture. OTHER: Negative. CT/CT abdomen pelvis w con IMPRESSION: No central pulmonary thromboembolic disease Clear lungs No acute intraperitoneal abnormality No aortic aneurysm or dissection Electronically authenticated by: KRISTEN CALDERA Date: 05/31/2024 05:18
[2024-05-31 04:00] LABS: Basophils Absolute Auto 0.1 10^3/uL (0.0-0.1); Basophils Percent Auto 1.3 % (0.2-2.0); Eosinophils Absolute Auto 0.3 10^3/uL (0.0-0.7); Eosinophils Percent Auto 3.2 % (0.9-7.0); Hematocrit 49.3 % (42.0-54.0); Hemoglobin 16.8 g/dL (14.0-18.0); Immature Granulocytes Abs Auto 0.02 10^3/uL (0.00-0.03); Immature Granulocytes Pct Auto 0.3 % (0.0-0.5); Lymphocytes Percent Auto 25.4 % (20.5-60.0); Mean Corpuscular HGB Conc 34.1 g/dL (29.9-35.2); Mean Corpuscular Hemoglobin 29.6 pg (25.9-34.0); Mean Corpuscular Volume 86.9 fL (80.0-94.0); Mean Platelet Volume 10.5 fL (9.5-13.5); Monocytes Absolute Auto 0.8 10^3/uL (0.3-0.8); Monocytes Percent Auto 10.3 % (1.7-12.0); Neutrophils Absolute Auto 4.7 10^3/uL (1.4-6.5); Neutrophils Percent Auto 59.5 % (43.0-75.0); Platelet Count 218 10^3/uL (150-450); Red Blood Count 5.67 10^6/uL (4.70-6.10); Red Cell Distribution Width 12.4 % (11.0-15.0); White Blood Count 7.8 10^3/uL (4.0-11.0)
[2024-05-31 04:04] LABS: Bilirubin Urine NEGATIVE (NEGATIVE); Blood Urine NEGATIVE (NEGATIVE); Clarity Urine CLEAR (CLEAR); Color Urine LT. YELLOW (YELLOW); Glucose Urine UA NEGATIVE (NEGATIVE); Ketones Urine NEGATIVE (NEGATIVE); Leukocyte Esterase Urine NEGATIVE (NEGATIVE); Nitrite Urine NEGATIVE (NEGATIVE); Protein Urine NEGATIVE (NEG/TRACE); Specific Gravity Urine <=1.005 (1.005-1.025); Urobilinogen Urine 0.2 EU/dL (0.2-1.0)
[2024-05-31 04:06] LABS: Urine Microscopic Indicated NO
[2024-05-31 04:17] LABS: Alanine Aminotransferase 51 U/L (16-63); Albumin Globulin Ratio 1.2; Albumin Level 4.2 g/dL (3.4-5.0); Alkaline Phosphatase 94 U/L (46-116); Anion Gap 11.3; Aspartate Amino Transferase 22 U/L (15-37); BUN Creatinine Ratio 7.4; Bilirubin Total 0.7 mg/dL (0.2-1.0); Calcium 9.2 mg/dL (8.5-10.1); Carbon Dioxide 31.5 mmol/L (21.0-32.0); Chloride 98 mmol/L (98-107); Estimated GFR (African America >60 (>=60); Estimated GFR (Non-African Ame >60 (>=60); Globulin 3.5 g/dL; Glucose 104 mg/dL (74-106); Potassium 3.8 mmol/L (3.5-5.1); Sodium 137 mmol/L (136-145); Total Protein 7.7 g/dL (6.4-8.2)
[2024-05-31 04:19] LABS: Troponin I High Sensitivity <4.0 pg/mL (4.0-76.1)
== END 2024-05-31 05:57 | disposition home or self-care (01) ==
PROVIDERS: Emergency Provider Internal Medicine; PCP Nurse Practitioner
DX: R10.9 Unspecified abdominal pain (principal); K21.9 Gastro-esophageal reflux disease without esophagitis; Z79.899 Other long term (current) drug therapy
CPT/HCPCS: 36415; 71275; 74177; 80053; 81003; 83605; 84484; 85025; 99285; Q9967

== ENCOUNTER 2025-02-08 17:48 | Emergency (ER) | payer MEDICAID, SELFPAY ==
[2025-02-08 17:54] VITALS: BP 144/96; PULSE 95; TEMP 36.9; O2SAT 98; BMI 27.4
--- OUTSIDE RECORDS SUMMARY | 2025-02-08 17:57 | XMS_ITS | CCD ---
Author Organization [facility] Care Team Providers Care Test Deskman Name Role Phone BRANDO JEFFREY Attending Unavailable Karime Loreto L Primary Care Physician Agustín Manjarrez. Attending Unavailable Karime, REFRIGERATION SERVICE TECHNICIAN Loreto L Attending Unavailable Karime, REFRIGERATION SERVICE TECHNICIAN Loreto L Attending Unavailable Karime, REFRIGERATION SERVICE TECHNICIAN Loreto L Attending Unavailable Karime, REFRIGERATION SERVICE TECHNICIAN Loreto L Attending Unavailable Karime, REFRIGERATION SERVICE TECHNICIAN Loreto L Attending Unavailable Karime, REFRIGERATION SERVICE TECHNICIAN Loreto L Attending Unavailable Mouchli Mohamad A. Admitting Unavailable Mouchli, Mohamad A. Attending Unavailable Mouchli, Mohamad A. Referring Unavailable Karime, REFRIGERATION SERVICE TECHNICIAN Loreto L Attending Unavailable Karime, REFRIGERATION SERVICE TECHNICIAN Loreto L Referring Unavailable Karime, REFRIGERATION SERVICE TECHNICIAN Loreto L Admitting Unavailable Mouchli, Mohamad A. Attending Unavailable Mouchli, Mohamad A. Attending Unavailable Mouchli, Mohamad A. Admitting Unavailable Mouchli, Mohamad A. Attending Unavailable Mouchli, Mohamad A. Referring Unavailable Allergies Allergy Classification Reported Allergen(s) Allergy Type Date of Onset Reaction(s) Facility Erythromycin / sulfiSOXAZOLE (1 source) Erythromycin / sulfiSOXAZOLE; Translations: [erythromycin-sul fisoxazole] Drug Allergy Anaphylaxis (disorder), Tongue swelling (finding) [facility] (7 sources) Erythromycin / sulfiSOXAZOLE; Translations: [erythromycin-sul fisoxazole] Drug Allergy Anaphylaxis (disorder), Tongue swelling (finding) [facility] Medications Current Medications Medication Drug Class(es) Dates Sig (Normalized) Sig (Original) busPIRone hydrochloride 5 mg oral tablet (1 source) Start: 07-23-2024 take 1 tablet by mouth three times daily, then take 2 tablets by mouth three times daily busPIRone 5 mg Tab 5 mg = 1 tab(s), Oral, TID, increase to 10mg TID after 2 weeks, # 90 tab(s), Refills(s) 4, Pharmacy: [facility]/pharmacy #[id number], 165, cm, 07/23/24 13:27:00 EDT, Height/Length Dosing, 85, kg, 07/23/24 13:27:00 EDT, Weight Dosing Start Date: 07/23/24 Status: Ordered Fiber Tab (4 sources) Start: 06-25-2024 take 1 tablet by mouth four times daily Fiber Tabs mg, Oral, QID, Refills(s) 0, Prophylaxis Start Date: 06/25/24 Status: Ordered Start: 06-25-2024 take 1 tablet by judy th four times daily Fiber Tabs mg, Oral, QID, Refills(s) 0 Start Date: 06/25/24 Status: Ordered hyoscyamine sulfate 0.125 mg oral tablet (1 source) Start: 07-23-2024 take 1 tablet by mouth four times daily as needed for muscle spasms Levsin 0.125 mg SL Tab 0.125 mg = 1 tab(s), Oral, QID, PRN for spasm, # 40 tab(s), Refills(s) 0, Pharmacy: [facility]/pharmacy #[id number], 165, cm, 07/23/24 13:27:00 EDT, Height/Length Dosing, 85, kg, 07/23/24 13:27:00 EDT, Weight Dosing Start Date: 07/23/24 Status: Ordered omeprazole 40 mg delayed release oral capsule (5 sources) Proton Pump Inhibitor Start: 05-08-2024 End: 05-03-2025 take 1 capsule by mouth once daily omeprazole 40 mg Cap-DR 40 mg = 1 cap(s), Oral, Daily, X 90 day(s), # 90 cap(s), Refills(s) 3, Pharmacy: [facility]/pharmacy #[id number], 167, cm, 05/08/24 13:30:00 EDT, Height/Length Dosing, 95.3, kg, 05/08/24 13:30:00 EDT, Weight Dosing Start Date: 05/08/24 Stop Date: 05/03/25 Status: Ordered Start: 01-18-2024 take 1 capsule by [facility] once daily omeprazole 40 mg Cap-DR 40 mg = 1 cap(s), Oral, Daily, # 90 cap(s), Refills(s) 3, Pharmacy: [facility]/pharmacy #[id number], 166.8, cm, 01/18/24 13:14:00 EDT, Height/Length Dosing, 91.6, kg, 01/18/24 13:14:00 EDT, Weight Dosing Start Date: 01/18/24 Status: Ordered Completed/Discontinued Medications Medication Drug Class(es) Dates Sig (Normalized) Sig (Original) Albuterol (Eqv-ProAir HFA) 90 mcg/inh inhalation aerosol (4 sources) Start: 05-08-2024 take 2 puff(s) by mouth every six hours Albuterol (Eqv-ProAir HFA) 90 mcg/inh inhalation aerosol See Instructions, 8.5 EA, Refill(s) 5, INHALE 2 PUFFS BY MOUTH EVERY 6 HOURS, [facility]/pharmacy #[id number], 167, cm, 05/08/24 13:30:00 EDT, Height/Length Dosing, 95.3, kg, 05/08/24 13:30:00 EDT, Weight Dosing Start Date: 05/08/24 Status: Ordered Problems Problem Classification Problem Date Documented Da te Episodic/Chronic Abdominal pain (16 sources) Generalized abdominal pain; Translations: [Generalized abdominal pain] Onset: 4 Episodic Acute myocardial infarction (5 sources) Myocardial infarction 01-18-2024 Chronic Anxiety disorders (5 sources) Anxiety 01-18-2024 Chronic Asthma (5 sources) Asthma 12-05-2013 Chronic Esophageal disorders (13 sources) Gastroesophageal reflux disease; Translations: [Gastroesophageal reflux disease without esophagitis] Onset: 4 12-05-2013 Chronic Headache; including migraine (5 sources) Chronic headache disorder 01-18-2024 Episodic Heart valve disorders (5 sources) Heart murmur 01-18-2024 Episodic Malignant neoplasm without specification of site (5 sources) Malignant neoplastic disease 01-18-2024 Chronic Other eye disorders (5 sources) Pain in eye 12-05-2013 Episodic Other gastrointestinal disorders (7 sources) Altered bowel function; Translations: [Change in bowel habit] Onset: 4 02-15-2024 Episodic Other gastrointestinal disorders (2 sources) Swollen abdomen; Translations: [Abdominal distension (gaseous)] Onset: 4 Episodic Other gastrointestinal disorders (4 sources) Abdominal bloating 06-25-2024 Episodic Other gastrointestinal disorders (4 sources) Dysphagia 03-14-2024 Episodic Other injuries and conditions due to external causes (5 sources) Injury of nose 01-18-2024 Episodic Other lower respiratory disease (4 sources) Dyspnea 03-14-2024 Episodic Other nutritional; endocrine; and metabolic disorders (3 sources) Obese class I; Translations: [Body mass index (BMI) 33.0-33.9, adult] Onset: 4 Chronic Other nutritional; endocrine; and metabolic disorders (8 sources) Body mass index 30+ - obesity 03-14-2024 Chronic Other nutritional; endocrine; and metabolic disorders (4 sources) Obesity caused by energy imbalance 05-08-2024 Chronic Other nutritional; endocrine; and metabolic disorders (2 sources) Obesity; Translations: [Other obesity due to excess calories] Onset: 4 Chronic Other upper respiratory infections (4 sources) Chronic maxillary sinusitis 03-14-2024 Chronic Karin-; endo-; and myocarditis; cardiomyopathy (except that caused by tuberculosis or sexually transmitted disease) (5 sources) Heart valve disorder 12-05-2013 Chronic Residual codes; unclassified (5 sources) Insomnia 01-18-2024 Episodic Screening and history of mental health and substance abuse codes (4 sources) Ex-smoker 05-08-2024 Episodic Substance-related disorders (6 sources) History of drug abuse; Translations: [Smoker] 01-18-2024 Chronic Comment on above: Added secondary to d ocumentation in Social History. Unclassified (5 sources) Finding of sensation of abdomen 01-18-2024 Results Test Name Value Interpretation Reference Range Facility Gastroenterology Office/Clin ic Noteon 07-23-2024 Gastroenterology Office/Clinic Note Gastroenterology Office/Clinic Note Chief Complaint follow up to egd/colon HPI Staff This is a 28 year old male who presents today for a follow up to EGD and Colonoscopy. still having left sided abd pain Last office visit w/ Dr Manjarrez History of Present Illness pt with bad GERD since 2012- on PPI since then 40mg it has been working Pt started to have symptoms one day after having beers woke up with pain in the left side and described as 9/10 went to the ED and CT scans were done - negative. was told to have gastritis pure mucous stool x 1 month - fiber improved pt can not lay on the right side or sleep since it can cause pain pt had 3 flares of pain since then pt has not been able to drink or eat unhealthy food lost some weight some appendix pain and low abd pain bloating and gas pain PT has been trying some natural stuff to help him go to the bathroom Assessment/Plan 1. Abdominal cramping (R10.9: Unspecified abdominal pain) 2. Bowel habit changes (R19.4: Change in bowel habit) 3. Chronic GERD, (K21.9: Gastro-esophageal reflux disease without esophagitis)Acid reflux 5. BMI 33.0-33.9,adult (Z68.33: Body mass index [BMI] 33.0-33.9, adult) 6. Generalized abdominal pain (R10.84: Generalized abdominal pain) 7. Bloating (R14.0: Abdominal distension (gaseous) 8. BMI 31.0-34.9,adult (Z68.34: Body mass index [BMI] 34.0-34.9, adult) Schedule upper endoscopy to evaluate abdominal pain and bloating and obtain biopsies of the stomach and small bowels Schedule colonoscopy with TI evaluation to evaluate abdominal pain, bloating, and mucus in stool Obtain HIDA scan to evaluate gallbladder Advised to take gentle stool softener. Patient would like to stay away from laxatives for now Advised to continue to eat healthy and lose weight EGD w/ Dr Manjarrez 07/10/24 Findings 1. Normal esophagus. Z-line at 35 cm. Hiatal hernia measuring 5 cm. Mild reflux esophagitis 2. Erythema in the antrum, mild patchy. Otherwise normal stomach. Biopsies of the stomach were taken to rule out H. pylori. 3. Normal duodenum. Biopsies obtained Impression and Plan hiatal hernia Mild reflux esophagitis Gastropathy Colonoscopy w/ Dr Manjarrez 07/10/24 Findings 1. Small internal hemorrhoids seen on retroflexion 2. Mild diverticulosis and mild erythema in the rectum status post biopsies 3. Normal Terminal ileum Impression and Plan Probable proctitis Mild diverticulosis Internal hemorrhoids Recommendations: Repeat colonoscopy:: At the age of 43 . Final Diagnosis (Verified) A: DUODENUM, BIOPSY: ??? DUODENAL MUCOSA WITHIN NORMAL LIMITS. B: STOMACH, BIOPSY: ??? GASTRIC MUCOSA WITH NO SIGNIFICANT PATHOLOGIC CHANGES. ??? NO H. PYLORI MICROORGANISMS IDENTIFIED WITH IMMUNOSTAIN. C: RECTUM, BIOPSY: ??? COLONIC MUCOSA WITH LYMPHOID AGGREGATES, WITHIN NORMAL LIMITS. HIDA 07/21/24 IMPRESSION: Patent cystic and common bile ducts. No evidence of acute cholecystitis. ABNORMAL gallbladder ejection fraction. Findings consistent with chronic cholecystitis in the appropriate clinical setting. History of Present Illness I have reviewed HPI staff note, most recent labs and imaging, I agree with the above documentation with the following additions/exceptions : pt started to eat healthy and started to do intermittent fasting pt developed pain in the left side once and lasted all day could happen when he sleeps on the left side no consistent BMs on fiber tablets pt not interested in laxatives since it makes him sick Review of Systems PHQ Score Initial Depression Screen Score: 0 SCORE All systems reviewed, negative except as mentioned above Physical Exam Vitals & Measurements HR: 68(Peripheral) BP: 123/82 HT: 65 in HT: 165 cm WT: 85 kg WT: 187 lb BMI: 31.22 General: alert, no acute distress HEENT: atraumatic normocephalic Cardiovascular: regular rate and rhythm, normal peripheral perfusion Respiratory: Lungs CTA, respirations non labored Extremities: no deformity, no trauma Abdomen: Benign, soft, tender nondistended Assessment/Plan 1. Abdominal cramping (R10.9: Unspecified abdominal pain) Ordered: busPIRone, 5 mg = 1 tab(s), Oral, TID, increase to 10mg TID after 2 weeks, # 90 tab(s), Refills(s) 4, Pharmacy: [facility]/pharmacy #[id number], 165, cm, 07/23/24 13:27:00 EDT, Height/Length Dosing, 85, kg, 07/23/24 13:27:00 EDT, Weight Dosing hyoscyamine, 0.125 mg = 1 tab(s), Oral, QID, PRN for spasm, # 40 tab(s), Refills(s) 0, Pharmacy: [facility]/pharmacy #[id number], 165, cm, 07/23/24 13:27:00 EDT, Height/Length Dosing, 85, kg, 07/23/24 13:27:00 EDT, Weight Dosing NM Hepatobiliary Duct System Imaging w/EF 2. Bowel habit changes (R19.4: Change in bowel habit) Ordered: busPIRone, 5 mg = 1 tab(s), Oral, TID, increase to 10mg TID after 2 weeks, # 90 tab(s), Refills(s) 4, Pharmacy: [facility]/pharmacy #[id number], 165, cm, 07/23/24 13:27:00 EDT, Height/Length Dosing, 85, kg, 07/23/24 13:27:00 EDT, Weight Dosing hyoscyamine, 0 (more content not included)... Normal [facility] Comment on above: Result Comment: Elec tronically Signed By: Agustín Manjarrez MD\.br\Date and Time Signed: 07/23/24 14:00 EDT NM Hepatobiliary Duct System Imaging w/EFon 07-23-2024 NM Hepatobiliary Duct System Imaging w/EF Exam Date/Time: 07/21/2024 10:22 EDT Reason for Exam: Bloating Report IMPRESSION: Patent cystic and common bile ducts. No evidence of acute cholecystitis. ABNORMAL gallbladder ejection fraction. Findings consistent with chronic cholecystitis in the appropriate clinical setting. NM Hepatobiliary Duct System Imaging w/EF CLINICAL HISTORY: Bloating.. TECHNIQUE: 4.3 mCi Tc-99m Mebrofenin IV, followed by 60 minutes of abdominal imaging. 1.8 mcg Kinevac (CCK) IV, followed by additional 30 minutes of imaging. RESULT: There is prompt and homogeneous uptake by the liver, which appears grossly normal in size and shape. Gallbladder activity is visualized by 60 minutes, indicating cystic duct patency. Proximal small bowel activity is noted by 20 minutes, indicating common bile duct patency. After CCK was administered there is minimal emptying from the gallbladder with a calculated gallbladder ejection fraction of 1% (normal > 35%). Ordering Provider: Agustín Manjarrez FINAL REPORT Dictated: 07/23/2024 11:45 am Reza Souza MD Signed (Electronic Signature): 07/23/2024 11:45 am Signed by: Reza Souza MD Transcribed by: ARNEL Technologist: RAMANA Technical Comments Dose: (mCi Tc99m Mebrofenin) 4.3 Kinevac Dose (in micrograms) 1.8 Normal [facility] Surgical Pathology Reporton 07-14-2024 Surgical Pathology Report [facility] [address] [address]- Surgical Pathology Report Collected Date/Time: 07/10/2024 12:46 EDT Pathologist: Marco PATTON PhD, Jada Lechuga Received Date/Time: 07/10/2024 13:35 EDT Josseline PATTON, Agustín Manjarrez MD, Agustín Fowler Surgical Pathology Report - 07/14/2024 12:25 EDT - Auth (Verified) Final Diagnosis A: DUODENUM, BIOPSY: - DUODENAL MUCOSA WITHIN NORMAL LIMITS. B: STOMACH, BIOPSY: - GASTRIC MUCOSA WITH NO SIGNIFICANT PATHOLOGIC CHANGES. - NO H. PYLORI MICROORGANISMS IDENTIFIED WITH IMMUNOSTAIN. C: RECTUM, BIOPSY: - COLONIC MUCOSA WITH LYMPHOID AGGREGATES, WITHIN NORMAL LIMITS. (Electronic Signature) Jada Lara MD PhD 07/14/2024 12:25 Clinical Information Abd cramping, bowel habits change, GERD, acid reflux Pre-Op Diagnosis: Abd cramping, bowel habits change, GERD, acid reflux Procedure: EGD, colonoscopy Post-Op Diagnosis: 1. Hiatal hernia 2. Mild reflux esophagitis 3. Gastropathy 4. Probable proctitis 5. Mild diverticulosis 6. Internal hemorrhoids Specimen(s) Received A: Duodenal biopsy B: Gastric biopsy C: Rectal biopsy Gross Description A: Received in formalin, labeled with patient name, number and duodenal biopsy are four fragments of cao-pink tissue ranging from 0.1 cm up to 0.3 cm in greatest dimension. Specimen is entirely submitted in one cassette. B: Received in formalin, labeled with patient name, number and gastric biopsy are three fragments of cao-pink tissue ranging from 0.1 cm up to 0.3 cm in greatest dimension. Cao-pink debridement tissue is present measuring up to less than 0.1 cm. Specimen is entirely submitted in one cassette. C: Received in formalin, labeled with patient name, number and rectal biopsy are four fragments of cao-pink tissue ranging from 0.1 cm up to 0.3 cm in greatest dimension. Specimen is entirely submitted in one cassette. (DC) DC:CLEMENT Microscopic Description Microscopic examination performed unless gross only specified. Surgical Pathology Report Collected Date/Time: 07/10/2024 12:46 EDT Pathologist: Marco PATTON PhD, Jada Lechuga Received Date/Time: 07/10/2024 13:35 EDT Agustín Manjarrez MD. Agustín Manjarrez MD Microscopic Description The use of one or more reagents in the above tests is regulated as an analyte specific reagent (ASR). The test or tests are ordered following initial H&E microscopic examination. The performance characteristics were determined by the [facility] of [facility]. They have not been cleared or approved by the US Food and Drug Administration. The FDA has determined that such clearance or approval is not necessary. These tests are used for clinical purposes. They should not be regarded as investigational or for research. Appropriate positive and negative controls are performed and are acceptable. Normal [facility] Comment on above: Performed By: #### [id number] #### [facility] [address] [place] [address] Main OR Intraoperative Recor don 07-11-2024 Main OR Intraoperative Record Main OR Intraoperative Record IntraOp Document Type FT Summary Primary Physician: Agustín Manjarrez MD Finalized Date/Time: 07/11/24 10:41:32 Pt. Name: DEMARIO ACEVEDO JR/Sex: 1995 Male Med Rec #: [id number] Physician: Agustín Manjarrez MD Financial #: [id number] Pt. Type: O Room/Bed: / Admit/Disch: 07/10/24 10:58:47 - 07/10/24 23:59:59 Institution: Case Times FT Entry 1 Patient Times In Room 07/10/24 12:40:00 Out Room 07/10/24 13:02:00 Procedure Times Start 07/10/24 12:44:00 Stop 07/10/24 12:58:00 Anesthesia Times Start 07/10/24 12:40:00 Stop 07/10/24 13:02:00 Time at [facility] 07/10/24 12:51:00 Last Modified By: Denise JENNINGS, Sarika Brar 07/10/24 13:02:54 General Comments: 1248 EGD completed/KS,RN 1249 Colonoscopy began/KS,RM 07/11/24 Chart opened to review and send charges [facility]oth CSFA Case Attendance FT Entry 1 Entry 2 Entry 3 Case Attendee Americo GAMEZ, Td Walker RN, Juan Hart Role Performed Anesthesiologist Volunteer Specialist - Primary Scrub - Primary Concert Singer Time In 07/10/24 12:40:00 07/10/24 12:40:00 07/10/24 12:40:00 Time Out 07/10/24 12:51:00 07/10/24 13:02:00 07/10/24 13:02:00 Procedure EGD AND COLONOSCOPY(.) EGD AND COLONOSCOPY(.) EGD AND COLONOSCOPY(.) Comments Dr. Sousa supervising procedure. Last Modified By: Denise RN, Sarika Walker RN, Sarika Walker RN, Sarika Brar 07/10/24 13:02:56 07/10/24 13:02:56 07/10/24 13:02:56 Entry 4 Entry 5 Entry 6 Case Attendee Chuck SUPERVISOR FRYER FARM, María Manjarrez MD, Agustín Farrell DNP, LANDSCAPE ARCHITECT, [facility] Role Performed Scrub - Primary Surgeon - Primary Anesthesiologist Concert Singer Time In 07/10/24 12:40:00 07/10/24 12:40:00 07/10/24 12:44:00 Time Out 07/10/24 13:02:00 07/10/24 13:02:00 07/10/24 13:02:00 Procedure EGD AND COLONOSCOPY(.) EGD AND COLONOSCOPY(.) EGD AND COLONOSCOPY(.) Comments Dr. Sousa supervising procedure. Last Modified By: Denise RN, Sarika Walker RN, Sarika Walker RN, Sarika Brar 07/10/24 13:02:56 07/10/24 13:02:56 07/10/24 13:02:56 Perioperative Protocols FT Pre-Care Text: Implements protective measures prior to operative or invasive procedure, confirms identity before the operative or invasive procedure, verifies operative procedure, surgical site, and laterality Entry 1 Procedure(s) EGD AND COLONOSCOPY(.) Patient Identity Birthday, ID Band Verified (select at Check, Patient least 2): Participation Consents / H and P Anesthesia Consent, Operative Site N/A Verified H&P, Surgery/Procedure Marking Verified Consent Surgical Site No Laterality Verified n/a Verified Procedure Verified Yes Correct Patient Yes Position Verified Availability Equipment, Medication Prep Dry n/a Verified (If Applicable) PreOp Antibiotic No Time Out Td Farah Given Participants Denise Marte RN, Kara N, Schafer CST, Josseline Sr MD, Agustín Jenkins Time Out Complete 07/10/24 12:42:00 Outcomes Met? Yes Last Modified By: Sarika Walker RN 07/10/24 12:42:28 Post-Care Text: The patient is free from signs and symptoms of injury caused by extraneous objects Allergy Information FT Pre-Care Text: Verifies allergies Entry 1 Allergies Reviewed? Yes Allergies Reviewed Self/Patient With Outcomes Met? Yes Last Modified By: Sarika Walker RN 07/10/24 12:42:37 Post-Care Text: The patient received appropriate medication(s) safely administered during the perioperative period Surgical Procedures FT Entry 1 Procedure Description Procedure EGD AND COLONOSCOPY Modifiers . Surgeon Description EGD with gastric biopsy and duodenal biopsy. Colonoscopy with rectal biopsy. Primary Procedure Yes Primary Surgeon Josseline PATTON, Agustín Jenkins Start 07/10/24 12:44:00 Stop 07/10/24 12:58:00 Anesthesia Type General Surgical Service Gastroenterology Wound Class 2 - Clean-Contaminated Last Modified By: Sarika Walker RN 07/10/24 12:59:41 General Case Data FT Pre-Care Text: Classifies surgical wound, implements aseptic technique, initiates traffic control Entry 1 Case Information OR ENDO 1 FT Case Level Level 2 Wound Class 2 - Clean-Contaminated Specialty Gastroenterology ASA Class 3 Preop Diagnosis ABDOMINAL CRAMPING, Postop Same As Preop No BOWEL HABIT CHANGES, GERD, ACID REFLUX Postop Diagnosis EGD- reflux Outcomes Met? Yes esophagitis, gastropathy, hiatal hernia. Colonoscopy- mild proctitis, diverticulosis and internal hemorrhoids. Last Modified By: Tianna Wharton CST 07/11/24 10:41:30 Post-Care Text: The patient is free from signs and symptoms of infection Skin Assessment (Pre Procedure) FT Pre-Care Text: Implements protective measures to prevent skin/ tissue injury due to thermal or mechanical sources Evaluates for signs and symptoms of physical injury to skin and tissue Entry 1 Skin Integrity Intact, [place], Warm, & Skin Abnormality No Dry Outcomes Met? Yes Last Modified By (more content not included)... Normal [facility] Discharge Instructionson Discharge Instructions Discharge Instructions DEMARIO ACEVEDO JR :1995 Visit Date:07/10/2024 Inpatient Discharge Instructions Your Care Team Admitting Physician - Agustín Manjarrez MD Referring Physician - Agustín Manjarrez MD Reason for Your Visit ABDOMINAL CRAMPING, BOWEL HABIT CHANGES, GERD, ACID REFLUX Your Diagnosis Diverticulosis Esophagitis, reflux Gastropathy Hemorrhoids, internal Hernia, hiatal Tests Performed Pathology Tissue Exam -- Results Pending -- Please visit your patient portal for your results or contact your primary care physician. This Is Your Medications List albuterol (Albuterol (Eqv-ProAir HFA) 90 mcg/inh inhalation aerosol) omeprazole (omeprazole 40 mg Cap-DR) polycarbophil (Fiber Tabs) Procedure History Colonoscopy (07/10/2024), EGD - esophagogastroduodenoscopy (07/10/2024), Ingrown toenail... Discharge Vitals Temperature (Temporal Artery) 36.4 ?C Heart Rate (Monitored) 97 Respiratory Rate 16 Blood Pressure 113/70 Height 165.5 cm Weight 91.2 kg BMI 33.3 What to do next Instructions From Your Doctor No qualifying data available. Previously Scheduled Follow-Up Appointments Sunday 8:00 AM EDT With: Where: Nuclear Medicine Sunday 1:15 PM EDT With: Agustín Manjarrez MD Where: [facility] [address] [address]- New Follow Up Appointments after Discharge Follow Up with Agustín Manjarrez MD, [place], [facility] When: Comments: Office will call Date and Time of Follow-up Appt if needed. Where: [address], [address] [place] [address]- [phone] Medications What How Much When Why Instructions Next Dose Unchanged albuterol (Albuterol (Eqv-ProAir HFA) 90 mcg/ inh inhalation aerosol) See instructions INHALE 2 PUFFS BY MOUTH EVERY 6 HOURS Unchanged omeprazole (omeprazole 40 mg Cap-DR) 1 Capsules By Mouth Every day Chronic GERD Abdominal cramping History of drug use Nasal trauma BMI 32.0-32.9,adult Heavy smoker Duration: 90 Days Unchanged polycarbophil (Fiber Tabs) By Mouth 4 times a day Test Results No qualifying data available. Allergies Pediazole (Anaphylaxis, Tongue swelling) Problems Ongoing - Any problem that you are currently receiving treatment for. Abdominal cramping Acid reflux Aesthesioneurocytoma Anxiety Bloating BMI 33.0-33.9,adult BMI 34.0-34.9,adult Bowel habit changes Chronic GERD Chronic headaches Chronic sinusitis of both maxillary sinuses Class 1 obesity due to excess calories without serious comorbidity with body mass index (BMI) of 34.0 to 34.9 in adult Difficulty swallowing Eye pain Former smoker Generalized abdominal pain Heart attack Heart murmur History of drug use Insomnia Left upper quadrant pain Nasal trauma Right lower quadrant pain Shortness of breath Historical - Any problem that you are no longer receiving treatment for. Asthma Heart valve disorder Education Materials Colonoscopy Care After Surgery Please read the instructions outlined below and refer to this sheet in the next few weeks. These discharge instructions provide you with general information on caring for yourself after you leave the hospital. Your doctor may also give you specific instructions. While your treatment has been planned according to the most current medical practices available, unavoidable complications occasionally occur. If you have any problems or questions after discharge, please call your doctor. ACTIVITY You may resume your regular activity, but move at a slower pace for the next 24 hours. Take frequent rest periods for the next 24 hours. Walking will help get rid of the air and reduce the bloated feeling in your abdomen (belly). No driving for 24 hours (because of the anesthesia (medicine) used during the test). You may shower. Do not sign any important legal documents or operate any machinery for 24 hours (because of the anesthesia used during the test). NUTRITION Drink plenty of fluids. You may resume your normal diet as instructed by your doctor. Begin with a light meal and progress to your normal diet. Heavy or fried foods are harder to digest and may make you feel nauseated (sick to your stomach). Avoid alcoholic beverages for 24 hours or as instructed. MEDICATIONS You may resume your normal medications unless your doctor tells you otherwise. WHAT YOU CAN EXPECT TODAY Some feelings of bloating in the abdomen. Passage of more gas than usual. Spotting of blood in your stool or on the toilet paper. FOLLOW-UP Your doctor will discuss the results of your test with you. SEEK IMMEDIATE MEDICAL ATTENTION IF: There is more than a spotting of blood in your stool. There is abdominal distention (your abdomen is swollen). There is vomiting. You have a temperature over 101.5 F. There (more content not included)... Normal [facility] Comment on above: Result Comment: Elec tronically Signed By: Kylee JENNINGS, Cyndee\.br\Date and Time Signed: 07/10/24 13:14 EDT H&P Updateon 07-10-2024 H&P Update H&P Update Patient: DEMARIO ACEVEDO JR Age: 28 years Sex: Male : 1995 Associated Diagnoses: None Author: Josseline PATTON, Agustín Jenkins Preoperative Information Chief compliant/Indication for procedure: Abdominal pain, bloating, and mucus in stool Chief Complaint as above Review of Systems All systems reviewed, negative except as mentioned above Physical Examination Vital Signs (last 24 hrs) Last Charted Temp Temporal 37.5 DegC (JUL 10:18) Heart Rate Monitored H 108 bpm (JUL 10:18) Resp Rate 18 br/min (JUL 10:18) SBP 135 mmHg (JUL 10:18) DBP H 91 mmHg (JUL 10:18) Weight 91.2 kg (JUL 10 11:08) BMI 33.3 (JUL 10 11:08) General: in Nad Abdomen: Soft, NTND Impression and Plan Diagnosis: Abdominal pain, mucus in stool, and bloating -EGD/colonoscopy Normal [facility] Main OR PACU II Recordon Main OR PACU II Record Main OR PACU II Record PACU Phase II Document Type FT Summary Primary Physician: Agustín Manjarrez MD Finalized Date/Time: 07/10/24 13:55:16 Pt. Name: DEMARIO ACEVEDO JR CINDI Gerardo/Sex: 1995 Male Med Rec #: [id number] Physician: Agustín Manjarrez MD Financial #: [id number] Pt. Type: O Room/Bed: / Admit/Disch: 07/10/24 10:58:47 - Institution: Case Times PACU II FT Pre-Care Text: Identifies barriers to communication and implements measures to provide psychological support and determines knowledge level Develops individualized plan of care, and ensures continuity of care Maintains patient's dignity and privacy, and maintains patient confidentiality Identifies and reports philosophical, cultural, and spiritual beliefs and values Identifies individual values and wishes concerning care administers prescribed antibiotic therapy and immunizing agents as ordered, Evaluates postoperative tissue perfusion Implements thermoregulation measures, and monitors body temperature Evaluates postoperative respiratory status Evaluates postoperative cardiac status Evaluates postoperative neurological status Assesses pain control, collaborated in initiating patient-controlled analgesia and implements alternative methods of pain control Verifies allergies, administers prescribed medications and solutions, evaluates response to medications Entry 1 In PACU II 07/10/24 13:04:00 Discharge from PACU 07/10/24 13:34:00 II Outcomes Met? Yes Last Modified By: Cyndee Pichardo RN 07/10/24 13:55:15 Post-Care Text: The patient demonstrates knowledge of the expected response to the operative or invasive procedure The patient's care is consistent with the individualized perioperative plan of care The patient's right to privacy is maintained The patient's value system, lifestyle, ethnicity, and culture are considered, respected, and incorporated into the perioperative plan of care The patient participates in decisions affecting his or her perioperative plan of care. The patient is free from signs and symptoms of infection The patient has wound/tissue perfusion consistent with or improved from baseline levels established preoperatively The patient is at or returning to normothermia at the conclusion of the immediate postoperative period The patient's respiratory function is consistent with or improved from baseline levels established preoperatively The patient's cardiovascular status is consistent with or improved from baseline levels established preoperatively The patient's neurological status is consistent with or improved from baseline levels established preoperatively The patient demonstrates and/or reports adequate pain control throughout the perioperative period The patient received appropriate medication(s), safely administered during the perioperative period Finalized By: Cyndee Pichardo RN Document Signatures Signed By: Cyndee Pichardo RN 07/10/24 13:55 Normal [facility] Main OR Preoperative Recordo n 07-10-2024 Main OR Preoperative Record Main OR Preoperative Record Holding Area Document Type FT Summary Primary Physician: Agustín Manjarrez MD Finalized Date/Time: 07/10/24 11:13:37 Pt. Name: CURTIS DEMARIO COBB /Sex: 1995 Male Med Rec #: [id number] Physician: Agustín Manjarrez MD Financial #: [id number] Pt. Type: O Room/Bed: / Admit/Disch: 07/10/24 10:58:47 - Institution: Case Times Holding FT Pre-Care Text: Verifies consent for planned procedure, identifies individual values and wishes concerning care, includes family members in perioperative teaching Secures patient's records' belongings, and valuables, maintains patient's dignity and privacy, and maintains patient confidentiality Entry 1 In Holding 07/10/24 11:12:00 Outcomes Met? Yes Last Modified By: Saranya King RN 07/10/24 11:12:19 Post-Care Text: The patient participates in decisions affecting his or her perioperative plan of care The patient's right to privacy is maintained Surgery Checklist FT Entry 1 Patient Birthday, ID Band NPO after Midnight: No Identification: Check, Patient Participation Date/Time: 07/10/24 07:15:00 Personal Items: Glasses Personal Items clothes Limitations: no Comment: Complaints of Pain: No Pain Comment: no Operative Site n/a Marked By: n/a Marking: Availability Equipment Verified: Does Patient Smoke No If Yes to Smoking. 4-5 cigs/day Cigars or Cigarettes. How much per day? Patient states Yes Comment - Adult Great Aunt-Lauren postop adult Supervision supervision available Case Cancelled in No Holding Area see comments below for reason Last Modified By: Saranya King RN 07/10/24 11:13:36 Finalized By: Saranya King RN Document Signatures Signed By: Saranya King RN 07/10/24 11:13 Normal [facility] Operative Reporton Operative Report Operative Report Patient: DEMARIO ACEVEDO JR Age: 28 years Sex: Male : 1995 Associated Diagnoses: None Author: Agustín Manjarrez MD Pre-Procedure Procedure Date 07/10/2024 13:03:00 . Procedure Type: Colonoscopy with biopsy. Procedure provider Performed by Agustín Manjarrez MD. Current history and physical Documented on chart. Ingrown toenail (703.0).. 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 Asthma (540532396): Resolved.. Family History Anxiety Mother Epilepsy Uncle Stroke Aunt Grandparent Schizophrenia Mother . Procedure History Ingrown toenail (703.0).. Colorectal neoplasm risk assessment Average risk. Informed Consent After discussing the rationale, risks and benefits, and alternatives to this procedure, the patient provided signed consent for the procedure. Pre-procedure diagnosis: Diagnostic: Mucus in stool. Medications (Selected) Inpatient Medications Ordered Lactated Ringers IV Rocio 1000 mL 1,000 mL: 1,000 mL, IV, 100 mL/hr, Routine, Start date 07/10/24 11:56:00 EDT, 10 hour(s), Total volume (mL): 1,000, 91.2 kg, 2.05, m2 Sodium Chloride 0.9% IV Rocio 1000 mL 1,000 mL: 1,000 mL, IV, 20 mL/hr, Routine, Start date 07/10/24 6:46:00 EDT, 50 hour(s), Total volume (mL): 1,000, 91.2 kg, 2.05, m2 Prescriptions Prescribed Albuterol (Eqv-ProAir HFA) 90 mcg/inh inhalation aerosol: See Instructions, 8.5 EA, Refill(s) 5, INHALE 2 PUFFS BY MOUTH EVERY 6 HOURS, [facility]/pharmacy #[id number], 167, cm, 05/08/24 13:30:00 EDT, Height/Length Dosing, 95.3, kg, 05/08/24 13:30:00 EDT, Weight Dosing omeprazole 40 mg Cap-DR: 40 mg = 1 cap(s), Oral, Daily, X 90 day(s), # 90 cap(s), Refills(s) 3, Pharmacy: [facility]/pharmacy #[id number], 167, cm, 05/08/24 13:30:00 EDT, Height/Length Dosing, 95.3, kg, 05/08/24 13:30:00 EDT, Weight Dosing Documented Medications Documented Fiber Tabs: mg, Oral, QID, Refills(s) 0, Prophylaxis ASA Classification: Class II. . Monitoring: See anesthesia record. . Procedure The procedure was performed in the hospital. See anesthesia record for sedation given during procedure. The patient was positioned starting in the left lateral decubitus position. Endoscope type used was a pediatric-size. The endoscope was lubricated then introduced through the anus. The scope was advanced to the terminal ileum. No difficulties encountered during the procedure. The bowel preparation quality was good and was adequate (see polyps greater than or equal to 6 millimeters). The patient tolerated the procedure well. Last colonoscopy Time to cecum: 2 min Time of withdrawal: 7 min Findings 1. Small internal hemorrhoids seen on retroflexion 2. Mild diverticulosis and mild erythema in the rectum status post biopsies 3. Normal Terminal ileum Images Procedure images: Rec1_hd_video_2_0 [id number].jpg Rec1_hd_video_2_0 1_29_483.jpg Rec1_hd_video_2_0 3_32_001.jpg Rec1_hd_video_2_0 4_48_159.jpg Rec1_hd_video_2_0 6_27_835.jpg Rec1_hd_video_2_0 6_56_903.jpg Rec1_hd_video_2_0 7_43_331.jpg Rec1_hd_video_2_0 7_49_399.jpg . Post-Procedure Complications: none. Estimated blood loss: Minimal. Specimens: sent to pathology. Devices/ implants: none left in place. Impression and Plan Probable proctitis Mild diverticulosis Internal hemorrhoids Recommendations: Repeat colonoscopy:: At the age of 43 . Follow-up:: in clinic for 1-2 weeks when pathology is available. Diet:: Previous. Medication resumption:: Continue current medications, Avoid NSAIDs. Return to activities:: After 24 hours. Education and Follow-up: Counseled: Patient, Family. 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 sales Attachment - attachment storage system not supported [id number] Can be viewed in source systemMissing Attachment - attachment storage system not supported [id number] Can be viewed in source systemMissing Attachment - attachment storage system not supported [id number] Can be viewed in source systemMissing Attachment - attachment storage system not supported [id number] Can be viewed in source systemMissing Attachment - attachment storage system not supported [id number] Can be viewed in source systemMissing Attachment - attachment storage system not supported [id number] Can be viewed in source systemMissing Attachment - attachment storage system not supported [id number] Can be viewed in source systemMissing Attachment - attachment storage system not supported [id number] Can be viewed in source system Operative Report Operative Report Patient: DEMARIO ACEVEDO JR Age: 28 years Sex: Male : 1995 Associated Diagnoses: None Author: Agustín Manjarrez MD Pre-Procedure Procedure Date 07/10/2024 13:01:00 . Procedure Type: Esophagogastroduodenoscopy with biopsy. Procedure provider Performed by Agustín Manjarrez MD. Current history and physical Documented on chart. Informed Consent After discussing the rationale, risks and benefits, and alternatives to this procedure, the patient provided signed consent for the procedure. Pre-procedure diagnosis: anemia. Medications (Selected) Inpatient Medications Ordered Lactated Ringers IV Rocio 1000 mL 1,000 mL: 1,000 mL, IV, 100 mL/hr, Routine, Start date 07/10/24 11:56:00 EDT, 10 hour(s), Total volume (mL): 1,000, 91.2 kg, 2.05, m2 Sodium Chloride 0.9% IV Rocio 1000 mL 1,000 mL: 1,000 mL, IV, 20 mL/hr, Routine, Start date 07/10/24 6:46:00 EDT, 50 hour(s), Total volume (mL): 1,000, 91.2 kg, 2.05, m2 Prescriptions Prescribed Albuterol (Eqv-ProAir HFA) 90 mcg/inh inhalation aerosol: See Instructions, 8.5 EA, Refill(s) 5, INHALE 2 PUFFS BY MOUTH EVERY 6 HOURS, [facility]/pharmacy #[id number], 167, cm, 05/08/24 13:30:00 EDT, Height/Length Dosing, 95.3, kg, 05/08/24 13:30:00 EDT, Weight Dosing omeprazole 40 mg Cap-DR: 40 mg = 1 cap(s), Oral, Daily, X 90 day(s), # 90 cap(s), Refills(s) 3, Pharmacy: [facility]/pharmacy #[id number], 167, cm, 05/08/24 13:30:00 EDT, Height/Length Dosing, 95.3, kg, 05/08/24 13:30:00 EDT, Weight Dosing Documented Medications Documented Fiber Tabs: mg, Oral, QID, Refills(s) 0, Prophylaxis Anticoagulant/antiplatelet None. ASA Classification: Class II. . Monitoring: See anesthesia record. . Procedure The procedure was performed in the hospital. See anesthesia record for sedation given during procedure. The patient was positioned starting in the left lateral decubitus position and with safety measures. Endoscope type used was an adult-size, introduced orally, advanced to the 2nd portion of the duodenum. No difficulty was encountered during the procedure. Views were excellent. The patient tolerated the procedure well. Findings 1. Normal esophagus. Z-line at 35 cm. Hiatal hernia measuring 5 cm. Mild reflux esophagitis 2. Erythema in the antrum, mild patchy. Otherwise normal stomach. Biopsies of the stomach were taken to rule out H. pylori. 3. Normal duodenum. Biopsies obtained Images Procedure images: Rec1_hd_video_2024_10_ [id number].jpg Rec_hd_video_ 5_[id number].jpg Rec_hd_video_ 5_23_658.jpg Rec_hd_video_ 5_31_516.jpg Rec_hd_video_ 5_43_361.jpg Rec_hd_video_ 8_19_[id number].jpg . Post-Procedure Complications: none. Estimated blood loss: minimal. Specimens: sent to pathology. Devices/ implants: none left in place. Impression and Plan hiatal hernia Mild reflux esophagitis Gastropathy Recommendations: -Resume previous diet -Resume home medications -Await pathology results, follow in GI clinic in 1-2 after discharge Normal [facility] Comment on above: Result Comment: Elec tronically Signed By: Josseline PATTON, Agustín Jenkins\.br\Date and Time Signed: 07/10/24 13:03 EDT Other Comment: Jayleen sales Attachment - attachment storage system not supported [id number] Can be viewed in source system Missing Attachment - attachment storage system not supported [id number] Can be viewed in source system Missing Attachment - attachment storage system not supported [id number] Can be viewed in source system Missing Attachment - attachment storage system not supported [id number] Can be viewed in source system Missing Attachment - attachment storage system not supported [id number] Can be viewed in source system Missing Attachment - attachment storage system not supported [id number] Can be viewed in source system Ambulatory Visit Summaryon 1 Ambulatory Visit Summary Ambulatory Visit Summary DEMARIO ACEVEDO JR :1995 Visit Date:06/25/2024 Ambulatory Visit Instructions Your Diagnosis Abdominal cramping Bowel habit changes Chronic GERD, Acid reflux BMI 33.0-33.9,adult Generalized abdominal pain Bloating BMI 34.0-34.9,adult Your Care Team Attending Physician - Josseline PATTON, Agustín Jenkins Primary Care Physician - Loreto Sosa This Is Your Medications List Contact prescribing physician if questions or concerns albuterol (Albuterol (Eqv-ProAir HFA) 90 mcg/inh inhalation aerosol) omeprazole (omeprazole 40 mg Cap-DR) polycarbophil (Fiber Tabs) Procedures Performed Ingrown toenail... Discharge Vitals Heart Rate (Peripheral) 89 Blood Pressure 112/75 Height 165.5 cm Height 65 in Weight 91.2 kg Weight 200.64 lb BMI 33.3 What to do next You Need to Complete the Following NM Hepatobiliary Duct System Imaging w/EF, 06/25/24, Routine, Order for Future Visit, Transport Mode: Ambulatory, Reason: Bloating, Abdominal cramping Bowel habit changes Chronic GERD Acid reflux BMI 33.0-33.9,adult Generalized abdominal pain, No, pp_set_radiology_subspecialty , Fishe... Medications What How Much When Why Instructions Unchanged albuterol (Albuterol (Eqv-ProAir HFA) 90 mcg/ inh inhalation aerosol) See instructions INHALE 2 PUFFS BY MOUTH EVERY 6 HOURS Contact prescribing physician if questions or concerns Unchanged omeprazole (omeprazole 40 mg Cap-DR) 1 Capsules By Mouth Every day Chronic GERD Abdominal cramping History of drug use Nasal trauma BMI 32.0-32.9,adult Heavy smoker Duration: 90 Days Contact prescribing physician if questions or concerns Unchanged polycarbophil (Fiber Tabs) By Mouth 4 times a day Contact prescribing physician if questions or concerns Medications and Immunizations Administered Not Given influenza virus vaccine, inactivated, Patient Refuses Allergies Pediazole (Anaphylaxis, Tongue swelling) Problems Ongoing - Any problem that you are currently receiving treatment for. Abdominal cramping Acid reflux Aesthesioneurocytoma Anxiety Bloating BMI 33.0-33.9,adult BMI 34.0-34.9,adult Bowel habit changes Chronic GERD Chronic headaches Chronic sinusitis of both maxillary sinuses Class 1 obesity due to excess calories without serious comorbidity with body mass index (BMI) of 34.0 to 34.9 in adult Difficulty swallowing Eye pain Former smoker Generalized abdominal pain Heart attack Heart murmur History of drug use Insomnia Left upper quadrant pain Nasal trauma Right lower quadrant pain Shortness of breath Historical - Any problem that you are no longer receiving treatment for. Asthma Heart valve disorder Patient Survey You may receive a survey via text or e-mail asking about your office visit. Please share your experience with us by completing your survey. We appreciate your feedback and thank you for choosing us for your care. Dillon Daniels [facility] Gastroenterology Office/Clin ic Noteon 06-25-2024 Gastroenterology Office/Clinic Note Gastroenterology Office/Clinic Note Chief Complaint Abdominal pain, reflux, mucus in stool and stool changed. HPI Staff This is a year old male who presents today for a referral by Rashawn for complaints of abdominal pain/cramping, acid reflux and a change in bowel habits. Patient c/o left side abdominal pain and unable to lay on his right side. Mucus in stool- improved with fiber Reflux and bloating Patient states that he has improved his diet- decreased sugar and soda intake. Has helped but not resolved. Denies Blood Thinners Denies GLP-1 Agonists Denies any family history of colon cancer/polyps or IBD Denies Dysphagia, abdominal pain, constipation, diarrhea or bloody stools. Denies any previous Colonoscopy Abdominal pain: When did you first have this pain: Quality (sharp, dull): Constant or comes or go: location and radiation: Relation to food: Improving or worsening factors factors: CT chest/abd/pelv w/ contrast 05/31/24 IMPRESSION: No central pulmonary thromboembolic disease Clear lungs No acute intraperitoneal abnormality No aortic aneurysm or dissection EGD w/ Dr Maradiaga 10/29/12 DIAGNOSIS: Grade B. esophagitis and concentric rings in the esophagus status post biopsies. Final Diagnosis (Verified) ESOPHAGUS, BIOPSY - NON-KERATINIZING STRATIFIED SQUAMOUS EPITHELIUM WITH FEATURES SUGGESTIVE BUT NOT DIAGNOSTIC OF REFLUX ESOPHAGITIS History of Present Illness I have reviewed HPI staff note, most recent labs and imaging, more than 30 minutes spent reviewing the chart, during encounter, placing orders and counseling the patient. pt with bad GERD since 2012- on PPI since then 40mg it has been working Pt started to have symptoms one day after having beers woke up with pain in the left side and described as 9/10 went to the ED and CT scans were done - negative. was told to have gastritis pure mucous stool x 1 month - fiber improved pt can not lay on the right side or sleep since it can cause pain pt had 3 flares of pain since then pt has not been able to drink or eat unhealthy food lost some weight some appendix pain and low abd pain bloating and gas pain PT has been trying some natural stuff to help him go to the bathroom Review of Systems PHQ Score Initial Depression Screen Score: 0 SCORE All systems reviewed, negative except as mentioned above Physical Exam Vitals & Measurements HR: 89(Peripheral) BP: 112/75 HT: 65 in HT: 165.5 cm WT: 91.2 kg WT: 200.64 lb BMI: 33.3 General: alert, no acute distress HEENT: atraumatic normocephalic Cardiovascular: regular rate and rhythm, normal peripheral perfusion Respiratory: Lungs CTA, respirations non labored Extremities: no deformity, no trauma Abdomen: Benign, soft, tender nondistended Assessment/Plan 1. Abdominal cramping (R10.9: Unspecified abdominal pain) Ordered: Colonoscopy (Hospital Procedure) EGD Endoscopy (Hospital Procedure) NM Hepatobiliary Duct System Imaging w/EF 2. Bowel habit changes (R19.4: Change in bowel habit) Ordered: Colonoscopy (Hospital Procedure) EGD Endoscopy (Hospital Procedure) NM Hepatobiliary Duct System Imaging w/EF 3. Chronic GERD, (K21.9: Gastro-esophageal reflux disease without esophagitis)Acid reflux Ordered: Colonoscopy (Hospital Procedure) EGD Endoscopy (Hospital Procedure) NM Hepatobiliary Duct System Imaging w/EF 5. BMI 33.0-33.9,adult (Z68.33: Body mass index [BMI] 33.0-33.9, adult) Ordered: Colonoscopy (Hospital Procedure) EGD Endoscopy (Hospital Procedure) NM Hepatobiliary Duct System Imaging w/EF 6. Generalized abdominal pain (R10.84: Generalized abdominal pain) Ordered: Colonoscopy (Hospital Procedure) EGD Endoscopy (Hospital Procedure) NM Hepatobiliary Duct System Imaging w/EF 7. Bloating (R14.0: Abdominal distension (gaseous)) Ordered: Colonoscopy (Hospital Procedure) EGD Endoscopy (Hospital Procedure) 8. BMI 34.0-34.9,adult (Z68.34: Body mass index [BMI] 34.0-34.9, adult) Schedule upper endoscopy to evaluate abdominal pain and bloating and obtain biopsies of the stomach and small bowels Schedule colonoscopy with TI evaluation to evaluate abdominal pain, bloating, and mucus in stool Obtain HIDA scan to evaluate gallbladder Advised to take gentle stool softener. Patient would like to stay away from laxatives for now Advised to continue to eat healthy and lose weight Follow-up No qualifying data available Problem List/Past Medical History Ongoing Abdominal cramping Acid reflux Aesthesioneurocytoma Anxiety Bloating BMI 33.0-33.9,adult BMI 34.0-34.9,adult Bowel habit changes Chronic GERD Chronic headaches Chronic sinusitis of both maxillary sinuses Class 1 obesity due to excess calories without serious comorbidity with body mass index (BMI) of 34.0 to 34.9 in adult Difficulty swallowing Eye pain Former smoker Generalized abdominal pain Heart attack Heart murmur History of drug use Insomn (more content not included)... [facility] Comment on above: Result Comment: Elec tronically Signed By: Josseline PATTON, Agustín Jenkins\.br\Date and Time Signed: 06/25/24 14:12 EDT Provider Letteron 06-10-2024 Provider Letter Provider Letter June 10, 2024 DEMARIO ACEVEDO [address] [place] [phone] : 1995 Dear Demario, We have been trying to reach you with no success. It is important that you return our call regarding your referral from Tawny Schaffer to see [facility]. Please call the office upon receiving this letter to schedule a appointment. Also, at the time of your call, please provide us with your current information. Thank you for your prompt attention to this matter. Sincerely, [facility] [phone] [facility] Ambulatory Visit Summaryon 0 06-03-2024 Ambulatory Visit Summary Ambulatory Visit Summary DEMARIO ACEVEDO JR :1995 Visit Date:06/03/2024 Ambulatory Visit Instructions Your Diagnosis Acid reflux Bowel habit changes Right lower quadrant pain Left upper quadrant pain Abdominal cramping BMI 34.0-34.9,adult, Body mass index [BMI] 34.0-34.9, adult Former smoker Class 1 obesity due to excess calories without serious comorbidity with body mass index (BMI) of 34.0 to 34.9 in adult Your Care Team Attending Physician - Loreto Sosa Primary Care Physician - Loreto Sosa This Is Your Medications List albuterol (Albuterol (Eqv-ProAir HFA) 90 mcg/inh inhalation aerosol) omeprazole (omeprazole 40 mg Cap-DR) Procedures Performed Ingrown toenail... Discharge Vitals Temperature (Temporal Artery) 36.6 ?C Heart Rate (Peripheral) 92 Respiratory Rate 16 Blood Pressure 132/84 Height 165.5 cm Height 65 in Weight 94.5 kg Weight 207.9 lb BMI 34.5 Medications What How Much When Why Instructions Unchanged albuterol (Albuterol (Eqv-ProAir HFA) 90 mcg/ inh inhalation aerosol) See instructions INHALE 2 PUFFS BY MOUTH EVERY 6 HOURS Unchanged omeprazole (omeprazole 40 mg Cap-DR) 1 Capsules By Mouth Every day Chronic GERD Abdominal cramping History of drug use Nasal trauma BMI 32.0-32.9,adult Heavy smoker Duration: 90 Days Allergies Pediazole (Anaphylaxis, Tongue swelling) Problems Ongoing - Any problem that you are currently receiving treatment for. Abdominal cramping Acid reflux Aesthesioneurocytoma Anxiety BMI 33.0-33.9,adult BMI 34.0-34.9,adult Bowel habit changes Chronic GERD Chronic headaches Chronic sinusitis of both maxillary sinuses Class 1 obesity due to excess calories without serious comorbidity with body mass index (BMI) of 34.0 to 34.9 in adult Difficulty swallowing Eye pain Former smoker Heart attack Heart murmur History of drug use Insomnia Left upper quadrant pain Nasal trauma Right lower quadrant pain Shortness of breath Historical - Any problem that you are no longer receiving treatment for. Asthma Heart valve disorder Patient Survey You may receive a survey via text or e-mail asking about your office visit. Please share your experience with us by completing your survey. We appreciate your feedback and thank you for choosing us for your care. Normal [facility] Family Medicine Office/Clini c Noteon 06-03-2024 Family Medicine Office/Clinic Note Family Medicine Office/Clinic Note Chief Complaint ER f/u HPI Staff Demario is a 28 year old male presenting with ER followup: Hospital: [facility] Visit date: 05/31/24 Symptoms the patient presented with: left side abdominal pain Current concerns: still has pain. Would like a referral to GI. History of Present Illness pt presents today for continued abdominal pain and changes in bowels Review of Systems PHQ Score Initial Depression Screen Score: 0 SCORE Physical Exam Vitals & Measurements T: 36.6 ?C(Temporal Artery) HR: 92(Peripheral) RR: 16 BP: 132/84 SpO2: 98% HT: 65 in HT: 165.5 cm WT: 94.5 kg WT: 207.9 lb BMI: 34.5 General: alert, no acute distress ENMT: oral mucosa moist, no pharyngeal erythema or exudate Cardiovascular: regular rate and rhythm, normal peripheral perfusion Respiratory: Lungs CTA, respirations non labored Extremities: no deformity, no trauma Neurological: oriented x 4, LOC appropriate for age, CN II-XII intact, motor strength equal & normal bilaterally, speech normal left upper quadrant tenderness Assessment/Plan 1. Acid reflux (K21.9: Gastro-esophageal reflux disease without esophagitis) pt was recently seen in ER and was told to hold his omeprazole. he states the reflux has been awful the last couple of days. he will restart that today. RTC 3 months Ordered: [facility] Internal Ambulatory Referral 2. Bowel habit changes (R19.4: Change in bowel habit) pt states bowel habit is all over the place. currently it is small little hard pellet like stool. a few weeks ago it was loose and mucousy. Ordered: [facility] Internal Ambulatory Referral 3. Left upper quadrant pain (R10.12: Left upper quadrant pain) started having severe left upper quadrant pain and then had pain in right lower quadrant this is when he went to ER. I reviewed CT of abdomen and chest as well as lab work. all are normal. will send referral to GI. Ordered: [facility] Internal Ambulatory Referral 4. Right lower quadrant pain (R10.31: Right lower quadrant pain) see above Ordered: [facility] Internal Ambulatory Referral 5. Abdominal cramping (R10.9: Unspecified abdominal pain) pt continues to get cramping, bloating and gas pains. Ordered: [facility] Internal Ambulatory Referral 6. BMI 34.0-34.9,adult (Z68.34: Body mass index [BMI] 34.0-34.9, adult) BMI education given Ordered: Body Mass Index (BMI) documented 3008F Current tobacco non-user 1036F Depression Screening Negative 3352F Discharge medications reconciled with current medications in outpatient record 1111F 7. Class 1 obesity due to excess calories without serious comorbidity with body mass index (BMI) of 34.0 to 34.9 in adult (E66.09: Other obesity due to excess calories) see above 8. Former smoker (Z87.891: Personal history of nicotine dependence) consider not smoking Follow-up No qualifying data available Problem List/Past Medical History Ongoing Abdominal cramping Acid reflux Aesthesioneurocytoma Anxiety BMI 33.0-33.9,adult BMI 34.0-34.9,adult Bowel habit changes Chronic GERD Chronic headaches Chronic sinusitis of both maxillary sinuses Class 1 obesity due to excess calories without serious comorbidity with body mass index (BMI) of 34.0 to 34.9 in adult Difficulty swallowing Eye pain Former smoker Heart attack Heart murmur History of drug use Insomnia Left upper quadrant pain Nasal trauma Right lower quadrant pain Shortness of breath Historical Asthma Heart valve disorder Procedure/Surgical History Ingrown toenail... Medications Albuterol (Eqv-ProAir HFA) 90 mcg/inh inhalation aerosol, See Instructions, 5 refills omeprazole 40 mg Cap-DR, 40 mg= 1 cap(s), Oral, Daily, 3 refills, Not taking: instructed by ER to stop Allergies Pediazole (Anaphylaxis, Tongue swelling) Social History Alcohol Past, Beer, Wine, Liquor, 1-2 times per week, Alcohol use interferes with work or home: Yes. Drinks more than intended: Yes. Others hurt by drinking: No. Ready to change: No. Household alcohol concerns: No., 03/14/2024 Substance Abuse Past, Marijuana, 01/18/2024 Tobacco Former smoker, quit more than 30 days ago Tobacco Use:. Never Smokeless Tobacco Use:. Cigarettes, 14 year(s). Ready to change: No. Household tobacco concerns: No. Yes, 06/03/2024 Family History Anxiety: Mother. Epilepsy: Uncle. Schizophrenia: Mother. Stroke: Aunt and Grandparent. Immunizations Vaccine Date Status Comments SARS-CoV-2 (COVID-19) mRNA BNT-162b2 vax 10/11/2020 Recorded SARS-CoV-2 (COVID-19) mRNA BNT-162b2 vax 09/20/2020 Recorded diphtheria/pertussis, acel/tetanus adult 05/28/2011 Given Nursing Judgment Normal [facility] Comment on above: Result Comment: Elec tronically Signed By: Loreto Sosa\.br\Date and Time Signed: 06/03/24 14:32 EDT Ambulatory Visit Summaryon 0 05-08-2024 Ambulatory Visit Summary Ambulatory Visit Summary DEMARIO ACEVEDO JR :1995 Visit Date:05/08/2024 Ambulatory Visit Instructions Your Diagnosis Chronic GERD Difficulty swallowing BMI 34.0-34.9,adult Class 1 obesity due to excess calories without serious comorbidity with body mass index (BMI) of 34.0 to 34.9 in adult Heavy smoker Your Care Team Attending Physician - Loreto Sosa Primary Care Physician - Loreto Sosa This Is Your Medications List albuterol (Albuterol (Eqv-ProAir HFA) 90 mcg/inh inhalation aerosol) omeprazole (omeprazole 40 mg Cap-DR) Procedures Performed Ingrown toenail... Discharge Vitals Temperature (Oral) 36.8 ?C Heart Rate (Peripheral) 79 Respiratory Rate 16 Blood Pressure 124/70 Height 167 cm Height 66 in Weight 95.3 kg Weight 209.66 lb BMI 34.17 Medications What How Much When Why Instructions New albuterol (Albuterol (Eqv-ProAir HFA) 90 mcg/ inh inhalation aerosol) See instructions Refills: 5 INHALE 2 PUFFS BY MOUTH EVERY 6 HOURS Pickup at [facility]/pharmacy #[id number] New omeprazole (omeprazole 40 mg Cap-DR) 1 Capsules By Mouth Every day Chronic GERD Abdominal cramping History of drug use Nasal trauma BMI 32.0-32.9,adult Heavy smoker Duration: 90 Days Refills: 3 Pickup at [facility]/pharmacy #[id number] Pharmacy Information [facility]/pharmacy #[id number]: [address] [place], [place] [phone] Allergies Pediazole (Anaphylaxis, Tongue swelling) Problems Ongoing - Any problem that you are currently receiving treatment for. Abdominal cramping Acid reflux Aesthesioneurocytoma Anxiety BMI 33.0-33.9,adult BMI 34.0-34.9,adult Bowel habit changes Chronic GERD Chronic headaches Chronic sinusitis of both maxillary sinuses Class 1 obesity due to excess calories without serious comorbidity with body mass index (BMI) of 34.0 to 34.9 in adult Difficulty swallowing Eye pain Former smoker Heart attack Heart murmur History of drug use Insomnia Nasal trauma Shortness of breath Historical - Any problem that you are no longer receiving treatment for. Asthma Heart valve disorder Patient Survey You may receive a survey via text or e-mail asking about your office visit. Please share your experience with us by completing your survey. We appreciate your feedback and thank you for choosing us for your care. [facility] Medicine Office/Clini c Noteon 05-08-2024 Family Medicine Office/Clinic Note Family Medicine Office/Clinic Note Chief Complaint f/u to Barium Swallow HPI Staff Demario is a 28 year old male presenting with follow up from Barium swallow study that was done on 04/10/24 @ [facility] albuterol inhaler sent at time of last encounter- uses PRN. Has been helping. Mostly used at night. Also finished Cefdinir given at last encounter. Does need refill of Omeprazole. History of Present Illness pt presents today for follow up on sinus issues and to go over swallow study results Review of Systems PHQ Score Initial Depression Screen Score: 0 SCORE Physical Exam Vitals & Measurements T: 36.8 ?C(Oral) HR: 79(Peripheral) RR: 16 BP: 124/70 SpO2: 97% HT: 66 in HT: 167 cm WT: 95.3 kg WT: 209.66 lb BMI: 34.17 General: alert, no acute distress ENMT: oral mucosa moist, no pharyngeal erythema or exudate Cardiovascular: regular rate and rhythm, normal peripheral perfusion Respiratory: Lungs CTA, respirations non labored Extremities: no deformity, no trauma Neurological: oriented x 4, LOC appropriate for age, CN II-XII intact, motor strength equal & normal bilaterally, speech normal Assessment/Plan 1. Chronic GERD (K21.9: Gastro-esophageal reflux disease without esophagitis) pt needs refills on omeprazole. reflux and abdominal pain is much improved. RTC as needed Ordered: omeprazole, 40 mg = 1 cap(s), Oral, Daily, # 90 cap(s), Refills(s) 3, Pharmacy: [facility] #[id number], 166.8, cm, 01/18/24 13:14:00 EDT, Height/Length Dosing, 91.6, kg, 01/18/24 13:14:00 EDT, Weight Dosing omeprazole, 40 mg = 1 cap(s), Oral, Daily, X 90 day(s), # 90 cap(s), Refills(s) 3, Pharmacy: [facility]/pharmacy #[id number], 167, cm, 05/08/24 13:30:00 EDT, Height/Length Dosing, 95.3, kg, 05/08/24 13:30:00 EDT, Weight Dosing 2. Difficulty swallowing (R13.10: Dysphagia, unspecified) reviewed swallow eval. pt feels his swallowing is about the same 3. BMI 34.0-34.9,adult (Z68.34: Body mass index [BMI] 34.0-34.9, adult) BMI education gvien Ordered: Body Mass Index (BMI) documented 3008F Current tobacco non-user 1036F Depression Screening Negative 3352F Discharge medications reconciled with current medications in outpatient record 1111F Falls plan of care documented 0518F Medication list documented in medical record 1159F Review of all meds by a prescribing practitioner or clinical pharmacist documented in EHR 1160F 4. Class 1 obesity due to excess calories without serious comorbidity with body mass index (BMI) of 34.0 to 34.9 in adult (E66.09: Other obesity due to excess calories) see above Heavy smoker (F17.200: Nicotine dependence, unspecified, uncomplicated) consider not smoking Ordered: omeprazole, 40 mg = 1 cap(s), Oral, Daily, # 90 cap(s), Refills(s) 3, Pharmacy: [facility]/pharmacy #[id number], 166.8, cm, 01/18/24 13:14:00 EDT, Height/Length Dosing, 91.6, kg, 01/18/24 13:14:00 EDT, Weight Dosing omeprazole, 40 mg = 1 cap(s), Oral, Daily, X 90 day(s), # 90 cap(s), Refills(s) 3, Pharmacy: [facility]/pharmacy #[id number], 167, cm, 05/08/24 13:30:00 EDT, Height/Length Dosing, 95.3, kg, 05/08/24 13:30:00 EDT, Weight Dosing Orders: albuterol, See Instructions, 8.5 EA, Refill(s) 5, INHALE 2 PUFFS BY MOUTH EVERY 6 HOURS, [id number], 167, cm, 05/08/24 13:30:00 EDT, Height/Length Dosing, 95.3, kg, 05/08/24 13:30:00 EDT, Weight Dosing albuterol, See Instructions, 8.5 EA, Refill(s) 0, INHALE 2 PUFFS BY MOUTH EVERY 6 HOURS, [id number], 167.6, cm, 03/14/24 10:31:00 EDT, Height/Length Dosing, 93.6, kg, 03/14/24 10:31:00 EDT, Weight Dosing Follow-up No qualifying data available Problem List/Past Medical History Ongoing Abdominal cramping Acid reflux Aesthesioneurocytoma Anxiety BMI 33.0-33.9,adult BMI 34.0-34.9,adult Bowel habit changes Chronic GERD Chronic headaches Chronic sinusitis of both maxillary sinuses Class 1 obesity due to excess calories without serious comorbidity with body mass index (BMI) of 34.0 to 34.9 in adult Difficulty swallowing Eye pain Former smoker Heart attack Heart murmur History of drug use Insomnia Nasal trauma Shortness of breath Historical Asthma Heart valve disorder Procedure/Surgical History Ingrown toenail... Medications Albuterol (Eqv-ProAir HFA) 90 mcg/inh inhalation aerosol, See Instructions, 5 refills omeprazole 40 mg Cap-DR, 40 mg= 1 [...] more than 30 days ago Tobacco Use:. Never Smokeless Tobacco Use:. Cigarettes, 14 year(s). Ready to change: No. Household tobacco concerns: No. Yes, 05/08/2024 Family History Anxiety: Mother. Epilepsy: Uncle. Schizophrenia: Mother. Stro (more content not included)... Normal [facility] Comment on above: Result Comment: Elec tronically Signed By: Loreto Sosa\.milan\Date and Time Signed: 05/08/24 13:45 EDT Family Medicine Office/Clini c Noteon 03-14-2024 Family [...] Dysphagia, unspecified) barium swallow study ordered through [facility]. pt to call GI back since [...] day(s), # 42 cap(s), Refills(s) 0, Pharmacy: [facility]/pharmacy #[id number], 167.6, cm, 03/14/24 10:31:00 EDT, Height/Length [...] day(s), # 42 cap(s), Refills(s) 0, [id number] 167.6, cm, 03/14/24 10:31:00 EDT, Height/Length [...] day(s), # 42 cap(s), Refills(s) 0, Pharmacy: [facility]/pharmacy #[id number], 167.6, cm, 03/14/24 10:31:00 EDT, Height/Length [...] SARS-CoV-2 (COVID-19) mRNA BNT-162b2 vax 09/20/2020 Recorded diphtheria/pertussis, acel/tetanus adult 05/28/2011 Given Nursing Judgment Normal [facility] Comment on above: Result Comment: Elec tronically [...] Kwame Bob MD Transcribed by: ARNEL Technologist: [facility] Consent for Treatmenton Consent for Treatment [id number]#1.00TIFF [facility] Family Medicine Office/Clini c Noteon 02-15-2024 Family Medicine Office/Clinic Note HPI Staff Demario [...] a lot of mucous in stool Ordered: [facility] Internal Ambulatory Referral 2. Abdominal cramping (R10.9: Unspecified abdominal pain) pt did not start taking medication Ordered: [facility] Internal Ambulatory Referral 3. Chronic GERD (K21.9: Gastro-esophageal reflux disease without esophagitis) did not start omeprazole Ordered: [facility] Internal Ambulatory Referral 4. Smoker (F17.200: Nicotine dependence, unspecified, uncomplicated) consider not smoking Ordered: [facility] Internal Ambulatory Referral 5. BMI 32.0-32.9,adult (Z68.32: Body mass index [BMI] 32.0-32.9, adult) BMI education complete Ordered: [facility] Internal Ambulatory Referral Follow-up No qualifying data [...] SARS-CoV-2 (COVID-19) mRNA BNT-162b2 vax 09/20/2020 Recorded diphtheria/pertussis, acel/tetanus adult 05/28/2011 Given Nursing Judgment Normal [facility] Comment on above: Result Comment: Elec tronically Signed By: Loreto Sosa.milan\Date and Time Signed: 02/15/24 15:02 EDT Ambulatory [...] 2:40 PM EDT With: Loreto Sosa Where: [facility] [facility] Family Medicine Office/Clini c Noteon 01-18-2024 Family Medicine Office/Clinic Note HPI Staff Demario is a 28 year old male presenting to establish care Establish Care: History: Any previous diagnosis: Anxiety, Asthma, Drug dependency, Alcohol, headaches, heart murmur, insomnia, Bicuspid heart valve(aorta), Gerd History of seeing any specialist: 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 Pt states he does have bad teeth, pt is calling set up an appointment with dentist. Has abscess right lower side of both back molar went to [facility] 12/24/23 Did start him on Clindamycin [...] SARS-CoV-2 (COVID-19) mRNA BNT-162b2 vax 09/20/2020 Recorded diphtheria/pertussis, acel/tetanus adult 05/28/2011 Given Nursing Judgment [facility] Comment on above: Result Comment: Elec tronically Signed By: Loreto Sosa\.br\Date and Time Signed: 01/18/24 13:54 EDT Insurance Correspondenceon 0 01-18-2024 Insurance Correspondence [id number]#[id number] [facility] XR CHEST (2 VW)on 02-15-2019 XR CHEST [...] Aman Knowles MD 02/15/19 Final result Normal [facility] Vital Signs Date Time Vital Sign Value Performing Clinician Facility 07-23-2024 13:27-0400 Diastolic blood pressure 82 mm[Hg] Agustín Manjarrez [facility] 07-23-2024 13:27-0400 Heart rate 68 /min Agustín Manjarrez [facility] 07-23-2024 13:27-0400 Systolic blood pressure 123 mm[Hg] Mohamad Mouchli [facility] 07-23-2024 13:25-0400 Blood Pressure Location Mohamad Mouchli [facility] 07-10-2024 13:26-0400 Diastolic blood pressure 76 mm[Hg] Mohamad Mouchli [facility] 07-10-2024 13:26-0400 Heart rate 108 /min Mohamad Mouchli [facility] 07-10-2024 13:26-0400 Mean blood pressure 89 mm[Hg] Mohamad Mouchli [facility] 07-10-2024 13:26-0400 Respiratory rate 21 /min Mohamad Mouchli [facility] 07-10-2024 13:26-0400 SaO2% (BldA) [Mass fraction] 97 % Mohamad Mouchli [facility] 07-10-2024 13:26-0400 Systolic blood pressure 114 mm[Hg] Mohamad Mouchli [facility] 07-10-2024 13:19-0400 Diastolic blood pressure 78 mm[Hg] Mohamad Mouchli [facility] 07-10-2024 13:19-0400 Heart rate 92 /min Mohamad Mouchli [facility] 07-10-2024 13:19-0400 Mean blood pressure 90 mm[Hg] Mohamad Mouchli [facility] 07-10-2024 13:19-0400 Respiratory rate 15 /min Mohamad Mouchli [facility] 07-10-2024 13:19-0400 SaO2% (BldA) [Mass fraction] 96 % Mohamad Mouchli [facility] 07-10-2024 13:19-0400 Systolic blood pressure 113 mm[Hg] Mohamad Mouchli [facility] 07-10-2024 13:10-0400 Diastolic blood pressure 70 mm[Hg] Mohamad Mouchli [facility] 07-10-2024 13:10-0400 Heart rate 97 /min Mohamad Mouchli [facility] 07-10-2024 13:10-0400 Mean blood pressure 84 mm[Hg] Mohamad Mouchli [facility] 07-10-2024 13:10-0400 Respiratory rate 16 /min Mohamad Mouchli [facility] 07-10-2024 13:10-0400 SaO2% (BldA) [Mass fraction] 96 % Mohamad Mouchli [facility] 07-10-2024 13:10-0400 Systolic blood pressure 113 mm[Hg] Mohamad Mouchli [facility] 07-10-2024 13:04-0400 Blood Pressure Location Mohamad Mouchli [facility] 07-10-2024 13:04-0400 Body temperature 97.52 [degF] Mohamad Mouchli [facility] 07-10-2024 12:55-0400 Respiratory rate 16 /min Mohamad Mouchli [facility] 07-10-2024 12:50-0400 Respiratory rate 19 /min Mohamad Mouchli [facility] 07-10-2024 11:18-0400 Blood Pressure Location Mohamad Mouchli [facility] 07-10-2024 11:18-0400 Body temperature 99.5 [degF] Mohamad Mouchli [facility] 06-25-2024 13:53-0400 Blood Pressure Location Mohamad Mouchli [facility] 06-25-2024 13:53-0400 Diastolic blood pressure 75 mm[Hg] Mohamad Mouchli [facility] 06-25-2024 13:53-0400 Heart rate 89 /min Mohamad Mouchli [facility] 06-25-2024 13:53-0400 Systolic blood pressure 112 mm[Hg] Mohamad Mouchli [facility] Encounters Encounter Date Encounter Type Care Provider Facility Start: 07-24-2024 ambulatory Mohamad Mouchli Facilit y:[facility] [place] Start: 07-23-2024 End: 07-23-2024 ambulatory Mohamad A. Mouchli Facility:[facility] Start: 07-23-2024 End: 07-23-2024 Patient encounter procedure Mohamad A. Mouchli [facility] Start: 07-21-2024 End: 07-21-2024 ambulatory Mohamad A. Mouchli Facility:[facility] Start: 07-21-2024 End: 07-21-2024 Patient encounter procedure Mohamad A. Mouchli [facility] Start: 07-10-2024 End: 07-10-2024 ambulatory Mohamad A. Mouchli Facility:[facility] Start: 07-10-2024 End: 07-10-2024 Patient encounter procedure Mohamad A. Mouchli [facility] Start: 06-25-2024 End: 06-25-2024 ambulatory Agustín Manjarrez Facility:[facility] Start: 06-25-2024 End: 06-25-2024 Patient encounter procedure Agustín Manjarrez [facility] Start: 06-03-2024 End: 06-03-2024 ambulatory REFRIGERATION SERVICE TECHNICIAN Loreto L Karime Facility: [facility] [place] Start: 05-08-2024 End: 05-08-2024 ambulatory REFRIGERATION SERVICE TECHNICIAN Loreto L Karime Facility: [facility] Start: 04-22-2024 End: 04-22-2024 ambulatory REFRIGERATION SERVICE TECHNICIAN Loreto L Karime Facility:[facility] Start: 03-14-2024 End: 03-14-2024 ambulatory REFRIGERATION SERVICE TECHNICIAN Loreto L Karime Facility: [facility] Start: 02-29-2024 End: 02-29-2024 ambulatory REFRIGERATION SERVICE TECHNICIAN Loreto L Karime Facility:[facility] Start: 02-29-2024 End: 02-29-2024 Patient encounter procedure Loreto L Karime [facility] Start: 02-25-2024 ambulatory Agustín Manjarrez Faci [facility]ity:[facility] Start: 02-19-2024 ambulatory Mohangelica Manjarrez Facilit y:[facility] Start: 02-15-2024 End: 02-15-2024 ambulatory REFRIGERATION SERVICE TECHNICIAN Loreto L Karime Facility: [facility] Start: 01-18-2024 End: 01-18-2024 ambulatory REFRIGERATION SERVICE TECHNICIAN Loreto L Karime Facility:[facility] [place] Start: 01-15-2024 ambulatory Mohamad Modanyli Facilit y: [facility] [place] Start: 02-14-2019 End: 02-14-2019 Emergency department patient visit BRANDO JEFFREY [facility] Procedures Date Procedure Procedure Detail Performing Clinician Start: 07-10-2024 Colonoscopy Agustín Manjarrez Start: 07-10-2024 Esophagogastroduodenoscopy Delorisseverino metz Start: 02-14-2019 Radiologic exam chest 2 views ERICK R DAVIS Ingrowing nail (disorder) Olivia di Karime Immunizations Immunization Date Immunization Notes Care Provider Suraj wakefield 10-11-2020 SARS-CoV-2 (COVID-19 ) mRNA BNT-162b2 vax Loreto Karime [facility] 09-20-2020 SARS-CoV-2 (COVID-19 ) mRNA [id number] vax Loreto Karime [facility] 05-28-2011 tetanus toxoid, reduced diphtheria toxoid, and acellular pertussis vaccine, adsorbed Loreto Karime [facility] Comment on above: Early/Late Reason: N ursing Judgment NEGATED: Highlighted row has not occurred!06-25-2024 influenza virus vaccine, unspecified formulation Fidelbassfieldseverino Damonvesta [facility] Payers Date Payer Category Payer Self-pay 2019 Medicaid [id number] 1995 Unknown [id number] 2.16.84 [id number] 1995 Unknown [id number] 2.16.8 [id number] 1995 Unknown [id number] 2.16.8 [id number] 1993 Unknown [id number] 2.16.8 [id number] 1993 Unknown [id number] 2.16.8 [id number] 1993 Unknown [id number] 2.16.8 [id number] 1993 Unknown [id number] 2.16.8 [id number] 1993 Unknown [id number] 2.16.8 40.1.137360.3.579.2.727 1993 Unknown [id number] 2.16.8 [id number] 1993 Unknown [id number] 2.16.8 [id number] 1993 Unknown [id number] 2.16.8 [id number] 1993 Unknown [id number] 2.16.8 [id number] 1993 Unknown [id number] 2.16.8 [id number] 1993 Unknown [id number] 2.16.8 [id number] Social History Date Type Detail Facility Start: 02-15-2024 Tobacco smoking status Heavy t obacco smoker (finding) [facility] [place] Sex Assigned At Male [facility] Start: 06-25-2024 End: 07-23-2024 Tobacco smoking status Ex-smoker (finding) [facility] Comment on above: patient quit tobacco 1 mos ago Tobacco smoking status Never [facility] Comment on above: patient quit tobacco 1 mos ago Functional Status Date Assessment Result Facility 07-23-2024 Functional Status N/A [facility] 07-10-2024 Functional Status N/A [facility] 06-25-2024 Functional Status N/A [facility] Clinical Note 07-21-2024 Note Date & Type Note Facility 07-21-2024 Note Progress Note-Physic kishan Patient: DEMARIO ACEVEDO JR Age: 28 years Sex: Male : 1995 Associated Diagnoses: None Author: Tam Sousa Jr., DO Preoperative Information Anesthesia history: Patient history: No prior anesthetic problems. Informed consent: Signed by patient. Re-evaluation prior to induction: Initial evaluation reviewed: No significant change. Review of Systems Respiratory: Negative except as documented in history of present illness. Cardiovascular: Negative except as documented in history of present illness. Health Status Allergies: Allergic Reactions (Selected) Severe Pediazole- Tongue swelling and anaphylaxis., Allergies (1) Active Severity Reaction Pediazole Severe Tongue swelling, Anaphylaxis Current medications: (Selected) Prescriptions Prescribed Albuterol (Eqv-ProAir HFA) 90 mcg/inh inhalation aerosol: See Instructions, 8.5 EA, Refill(s) 5, INHALE 2 PUFFS BY MOUTH EVERY 6 HOURS, [facility]/pharmacy #[id number], 167, cm, 05/08/24 13:30:00 EDT, Height/Length Dosing, 95.3, kg, 05/08/24 13:30:00 EDT, Weight Dosing omeprazole 40 mg Cap-DR: 40 mg = 1 cap(s), Oral, Daily, X 90 day(s), # 90 cap(s), Refills(s) 3, Pharmacy: [facility]/pharmacy #[id number], 167, cm, 05/08/24 13:30:00 EDT, Height/Length Dosing, 95.3, kg, 05/08/24 13:30:00 EDT, Weight Dosing Documented Medications Documented Fiber Tabs: mg, Oral, QID, Refills(s) 0, Prophylaxis, Home Medications (3) Active Albuterol (Eqv-ProAir HFA) 90 mcg/inh inhalation aerosol See Instructions Fiber Tabs , Oral, QID omeprazole 40 mg Cap-DR 40 mg = 1 cap(s), Oral, Daily , No qualifying data available Problem list: All Problems Abdominal cramping / SNOMED CT 455607606 / Confirmed Acid reflux / SNOMED CT 658114866 / Confirmed 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 Anxiety / SNOMED CT 58209107 / Confirmed Bloating / SNOMED CT 299018887 / Confirmed BMI 33.0-33.9,adult / SNOMED CT 372795772 / Confirmed BMI 34.0-34.9,adult / SNOMED CT 094488380 / Confirmed Bowel habit changes / SNOMED CT 703821854 / Confirmed Chronic GERD / SNOMED CT 879143985 / Confirmed Chronic headaches / SNOMED CT 4171597696 / Confirmed Chronic sinusitis of both maxillary sinuses / SNOMED CT 74628843 / Confirmed Class 1 obesity due to excess calories without serious comorbidity with body mass index (BMI) of 34.0 to 34.9 in adult / SNOMED CT 3323042897 / Confirmed Difficulty swallowing / SNOMED CT 11164870 / Confirmed Eye pain / SNOMED CT 6594074208 / Confirmed Former smoker / SNOMED CT 38561854 / Confirmed Generalized abdominal pain / SNOMED CT 897648038 / Confirmed Heart attack / SNOMED CT 94373688 / Confirmed Heart murmur / SNOMED CT 065882104 / Confirmed History of drug use / SNOMED CT 4841101790 / Confirmed Insomnia / SNOMED CT 453825563 / Confirmed Left upper quadrant pain / SNOMED CT 541780814 / Confirmed Nasal trauma / SNOMED CT 41173882 / Confirmed Right lower quadrant pain / SNOMED CT 783918774 / Confirmed Shortness of breath / SNOMED CT 785794278 / Confirmed Resolved: Asthma / SNOMED CT 327746955 Resolved: Heart valve disorder / SNOMED CT 4613093 Canceled: Obese / SNOMED CT 9501011142 Canceled: Smoker / IMO [id number] Added secondary to documentation in Social History. Histories Past Medical History: Active Acid reflux (320794854) Resolved Heart valve disorder (9708698): Resolved. Asthma (608137842): Resolved. Procedure history: Colonoscopy ([id number]) on 07/10/2024 at 28 Years. EGD - esophagogastroduodenoscopy (4814706963) on 07/10/2024 at 28 Years. Ingrown toenail (703.0). Social History Social & Psychosocial Habits Alcohol 06/25/2024 Use: Past Type: Beer, Liquor, Wine Frequency: 1-2 times per week Has alcohol use interfered with work or home life? Yes Do you ever drink more than intended? Yes Has anyone been hurt or at risk by your drinking? No Ready to change: No Concerns about alcohol use in household: No Comment: few times a week. - 03/04/2016 21:08 - Ward JENNINGS, Charline Brar; patient not drinking ETOH - 03/14/2024 10:34 - Mat Gomez Substance Abuse 06/25/2024 Use: Past Type: Marijuana Comment: quit in 2012 - 01/18/2024 12:56 - DarrellVeda Carmencita Tobacco 06/25/2024 Tobacco Use: Former smoker, quit more Smokeless tobacco use: Never Type: Cigarettes Number of years: 14 Ready to change: No Concerns about tobacco use in household: No Smoking Cessation Yes Comment: patient quit tobacco 1 mos ago - 03/14/2024 10:35 - Mat Gomze . Physical Examination VS/Measurements Airway: Mallampati classification: II (soft palate, fauces, uvula visible). Respiratory: Lungs are clear to auscultation, Respirations are non-labored. Cardiovascular: Regular rhythm. Plan [place] [employer] Anesthesiologists (ASA) physical status classification: Class III. Anesthetic Preoperative Plan: Anesthesia General, and -TIVA. [facility] Comment on above: Result Comment: Elec tronically Signed By: Tam Sousa Jr., DO\.br\Date and Time Signed: 07/21/24 07:02 EDT Hospital Discharge instructions 07-10-2024 Note Date & Type Note Facility 07-10-2024 Hospital Discharg e instructions Patient Education 07/10/2024 13:14:11 Colonoscopy, Care After Surgery Salam (CUSTOM) Colonoscopy Care After Surgery Please read the instructions outlined below and refer to this sheet in the next few weeks. These discharge instructions provide you with general information on caring for yourself after you leave the hospital. Your doctor may also give you specific instructions. While your treatment has been planned according to the most current medical practices available, unavoidable complications occasionally occur. If you have any problems or questions after discharge, please call your doctor. ACTIVITY You may resume your regular activity, but move at a slower pace for the next 24 hours. Take frequent rest periods for the next 24 hours. Walking will help get rid of the air and reduce the bloated feeling in your abdomen (belly). No driving for 24 hours (because of the anesthesia (medicine) used during the test). You may shower. Do not sign any important legal documents or operate any machinery for 24 hours (because of the anesthesia used during the test). NUTRITION Drink plenty of fluids. You may resume your normal diet as instructed by your doctor. Begin with a light meal and progress to your normal diet. Heavy or fried foods are harder to digest and may make you feel nauseated (sick to your stomach). Avoid alcoholic beverages for 24 hours or as instructed. MEDICATIONS You may resume your normal medications unless your doctor tells you otherwise. WHAT YOU CAN EXPECT TODAY Some feelings of bloating in the abdomen. Passage of more gas than usual. Spotting of blood in your stool or on the toilet paper. FOLLOW-UP Your doctor will discuss the results of your test with you. SEEK IMMEDIATE MEDICAL ATTENTION IF: There is more than a spotting of blood in your stool. There is abdominal distention (your abdomen is swollen). There is vomiting. You have a temperature over 101.5 F. There is abdominal pain or discomfort that is severe or gets worse throughout the day. 07/10/2024 13:13:58 Diverticulosis MAGR (CUSTOM) Diverticulosis Many people have small pouches in their colon called diverticulum. The diverticulum bulge outward through weak spots in the colon. You could have one or more of these pouches in the colon. The condition of having these pouches in the colon is called diverticulosis or diverticular disease. Diverticulosis is usually diagnosed by tests to evaluate something else. For example, you may have had a colonoscopy to screen for colon cancer when the diverticulosis was found. Most people with diverticulosis do not have any discomfort or problems. If symptoms develop, they may include mild cramps, bloating, and constipation. A complication of this condition is called diverticulitis. This is when the diverticulum become inflamed and infected. How to treat diverticulosis: Increasing the amount of fiber in the diet may reduce symptoms of diverticulosis and prevent complications such as diverticulitis (infected diverticuli). Fiber keeps stool soft and lowers pressure inside the colon so that bowel contents can move through easily. You should eat 20 to 35 grams of fiber each day. The table below shows the amount of fiber in some foods that you can easily add to your diet. Adding fiber slowly may decrease the bloating and fullness sometimes felt with an immediate high fiber diet. The doctor may also recommend taking a fiber product such as Citrucel or Metamucil once a day. In the past people with diverticulosis were to avoid nuts, corn, and seeds. This has not been found to be true. If you find that certain foods create cramping or bloating, avoid that food. Foods high in fiber include: Fresh fruits, fresh vegetables, legumes (beans), whole wheat bread, bran muffins or cereal, and nuts. See the table below for examples of high fiber foods. Remember, your goal is 20-35 grams per day. Amount of fiber in different foods Food Serving Grams of fiber Fruits Apple (with skin) 1 medium apple 4.4 Banana 1 medium banana 3.1 Oranges 1 orange 3.1 Prunes 1 cup, pitted 12.4 Juices Apple, unsweetened, w/added ascorbic acid 1 cup 0.5 Grapefruit, white, canned, sweetened 1 cup 0.2 Grape, unsweetened, w/added ascorbic acid 1 cup 0.5 Walworth 1 cup 0.7 Vegetables Cooked Green beans 1 cup 4.0 Carrots 1/2 cup sliced 2.3 Peas 1 cup 8.8 Potato (baked, with skin) 1 medium potato 3.8 Raw Lula (with peel) 1 cucumber 1.5 Lettuce 1 cup shredded 0.5 Tomato 1 medium tomato 1.5 Spinach 1 cup 0.7 Legumes Baked beans, canned, no salt added 1 cup 13.9 Kidney beans, canned 1 cup 13.6 Traore beans, canned 1 cup 11.6 Lentils, boiled 1 cup 15.6 Breads, pastas, flours Bran muffins 1 medium muffin 5.2 Oatmeal, cooked 1 cup 4.0 White bread 1 slice 0.6 Whole-wheat bread 1 slice 1.9 Pasta and rice, cooked Macaroni 1 cup 2.5 Rice, brown 1 cup 3.5 Rice, white 1 cup 0.6 Spaghetti (regular) 1 cup 2.5 Nuts Almonds 1/2 cup 8.7 Peanuts 1/2 cup 7.9 Chart from [facility] 2013. SEEK IMMEDIATE MEDICAL CARE IF: You develop abdominal (belly) pain. An oral temperature above _ 101 F__develops. Repeated vomiting occurs. Blood is being passed in stools (bright red or black tarry stools). You develop any bowel problems or changes which you have not had before. Extra Information: To learn how much fiber and other nutrients are in different foods, visit the [place] Department of Agriculture (USDA) National Nutrient Database at: http://www.nal.usda.gov/fnic/fo odcomp/search/ Created using data from the USDA National Nutrient Database for Standard Reference. Available at http://www.nal.usda.gov/fnic/fo odcomp/search/. Information adapted from: ExitCare Patient Information 2009 [employer]. [employer] 2012 http://www.[employer]ational/content s/tprlaemrgida-viqdbrn-layums-t he-basics Follow Up Care 06/25/2024 14:55:31 With:Josseline PATTON, Agustín Jenkins, [facility], [facility] Address: [address] [place] [phone] When: Unknown Comments:Office will call Date and Time of Follow-up Appt if needed. [facility] Evaluation + Plan note 07-10-2024 Note Date & Type Note Facility 07-10-2024 Evaluation + Plan note Extrac johnie from: Title:ANES Post-operative Note - General Author: Tam Sousa Jr., DO Date:07/10/24 Plan Transfer/Discharge: Transfer/Discharge Discharge when meets criteria ( From PACU to Ambulatory Surgery Unit, and To home ). Future Appointments Appointment Date:07/21/2024 08:00:00 AM Scheduled Provider: Location:.[facility] Appointment Type:NM Hepatobiliary Duct System Imaging (FT Appointment Date:07/23/2024 01:15:00 PM Scheduled Provider:Agustín Manjarrez MD Location:[facility] Appointment Type:[facility] Follow Up Future Scheduled Tests Radiology* NM Hepatobiliary Duct System Imaging w/EF 07/21/24 [facility] Clinical Note 07-10-2024 Note Date & Type Note Facility 07-10-2024 Note Progress Note-Physic kishan Patient: DEMARIO ACEVEDO JR Age: 28 years Sex: Male : 1995 Associated Diagnoses: None Author: Tam Sousa Jr., DO Postoperative Information Postoperative disposition: Postoperative disposition: Home. Optimetrix number: Optimetrix number [id number]. Anesthetic utilized: General. Physical Examination Vital Signs 07/10/2024 13:19 EDT Heart Rate Monitored 92 bpm Respiratory Rate Monitored 15 br/min Systolic Blood Pressure 113 mmHg Diastolic Blood Pressure 78 mmHg Mean Arterial Pressure, Cuff 90 mmHg SpO2 96 % 07/10/2024 13:10 EDT Heart Rate Monitored 97 bpm Respiratory Rate Monitored 16 br/min Systolic Blood Pressure 113 mmHg Diastolic Blood Pressure 70 mmHg Mean Arterial Pressure, Cuff 84 mmHg SpO2 96 % 07/10/2024 13:04 EDT Temperature Temporal Artery 36.4 DegC Heart Rate Monitored 98 bpm Respiratory Rate Monitored 17 br/min Systolic Blood Pressure 115 mmHg Diastolic Blood Pressure 72 mmHg Blood Pressure Location Left arm Mean Arterial Pressure, Cuff 86 mmHg SpO2 95 % Pain Assessment: Controlled. General: Awake, Alert, Appropriate. Respiratory: Adequate air exchange, Non-labored. Cardiovascular: Stable, Normal peripheral perfusion. Neurological: Neurologic exam at baseline. No changes.. Assessment Anesthetic outcome No anesthetic complications noted. No nausea/vomiting. Review / Management Condition: Stable. Plan Transfer/Discharge: Transfer/Discharge Discharge when meets criteria ( From PACU to Ambulatory Surgery Unit, and To home ). [facility] Comment on above: Result Comment: Elec tronically Signed By: Tam Sousa Jr., DO\.br\Date and Time Signed: 07/10/24 13:46 EDT Clinical Note 07-10-2024 Note Date & Type Note Facility 07-10-2024 Note Patient Education - Text Colonoscopy Care After Surgery Please read the instructions outlined below and refer to this sheet in the next few weeks. These discharge instructions provide you with general information on caring for yourself after you leave the hospital. Your doctor may also give you specific instructions. While your treatment has been planned according to the most current medical practices available, unavoidable complications occasionally occur. If you have any problems or questions after discharge, please call your doctor. ACTIVITY You may resume your regular activity, but move at a slower pace for the next 24 hours. Take frequent rest periods for the next 24 hours. Walking will help get rid of the air and reduce the bloated feeling in your abdomen (belly). No driving for 24 hours (because of the anesthesia (medicine) used during the test). You may shower. Do not sign any important legal documents or operate any machinery for 24 hours (because of the anesthesia used during the test). NUTRITION Drink plenty of fluids. You may resume your normal diet as instructed by your doctor. Begin with a light meal and progress to your normal diet. Heavy or fried foods are harder to digest and may make you feel nauseated (sick to your stomach). Avoid alcoholic beverages for 24 hours or as instructed. MEDICATIONS You may resume your normal medications unless your doctor tells you otherwise. WHAT YOU CAN EXPECT TODAY Some feelings of bloating in the abdomen. Passage of more gas than usual. Spotting of blood in your stool or on the toilet paper. FOLLOW-UP Your doctor will discuss the results of your test with you. SEEK IMMEDIATE MEDICAL ATTENTION IF: There is more than a spotting of blood in your stool. There is abdominal distention (your abdomen is swollen). There is vomiting. You have a temperature over 101.5 F. There is abdominal pain or discomfort that is severe or gets worse throughout the day. Diverticulosis Many people have small pouches in their colon called diverticulum. The diverticulum bulge outward through weak spots in the colon. You could have one or more of these pouches in the colon. The condition of having these pouches in the colon is called diverticulosis or diverticular disease. Diverticulosis is usually diagnosed by tests to evaluate something else. For example, you may have had a colonoscopy to screen for colon cancer when the diverticulosis was found. Most people with diverticulosis do not have any discomfort or problems. If symptoms develop, they may include mild cramps, bloating, and constipation. A complication of this condition is called diverticulitis. This is when the diverticulum become inflamed and infected. How to treat diverticulosis: Increasing the amount of fiber in the diet may reduce symptoms of diverticulosis and prevent complications such as diverticulitis (infected diverticuli). Fiber keeps stool soft and lowers pressure inside the colon so that bowel contents can move through easily. You should eat 20 to 35 grams of fiber each day. The table below shows the amount of fiber in some foods that you can easily add to your diet. Adding fiber slowly may decrease the bloating and fullness sometimes felt with an immediate high fiber diet. The doctor may also recommend taking a fiber product such as Citrucel or Metamucil once a day. In the past people with diverticulosis were to avoid nuts, corn, and seeds. This has not been found to be true. If you find that certain foods create cramping or bloating, avoid that food. Foods high in fiber include: Fresh fruits, fresh vegetables, legumes (beans), whole wheat bread, bran muffins or cereal, and nuts. See the table below for examples of high fiber foods. Remember, your goal is 20-35 grams per day. Amount of fiber in different foods Food Serving Grams of fiber Fruits Apple (with skin) 1 medium apple 4.4 Banana 1 medium banana 3.1 Oranges 1 orange 3.1 Prunes 1 cup, pitted 12.4 Juices Apple, unsweetened, w/added ascorbic acid 1 cup 0.5 Grapefruit, white, canned, sweetened 1 cup 0.2 Grape, unsweetened, w/added ascorbic acid 1 cup 0.5 Walworth 1 cup 0.7 Vegetables Cooked Green beans 1 cup 4.0 Carrots 1/2 cup sliced 2.3 Peas 1 cup 8.8 Potato (baked, with skin) 1 medium potato 3.8 Raw Lula (with peel) 1 cucumber 1.5 Lettuce 1 cup shredded 0.5 Tomato 1 medium tomato 1.5 Spinach 1 cup 0.7 Legumes Baked beans, canned, no salt added 1 cup 13.9 Kidney beans, canned 1 cup 13.6 Traore beans, canned 1 cup 11.6 Lentils, boiled 1 cup 15.6 Breads, pastas, flours Bran muffins 1 medium muffin 5.2 Oatmeal, cooked 1 cup 4.0 White bread 1 slice 0.6 Whole-wheat bread 1 slice 1.9 Pasta and rice, cooked Macaroni 1 cup 2.5 Rice, brown 1 cup 3.5 Rice, white 1 cup 0.6 Spaghetti (regular) 1 cup 2.5 Nuts Almonds 1/2 cup 8.7 Peanuts 1/2 cup 7.9 Chart from [employer] 2 (more content not included)... [facility] Evaluation + Plan note Note Date & Type Note Facility Evaluation + Plan note No data available for this section [facility] Evaluation + Plan note Radiology Note Date & Type Note Facility Evaluation + Plan note Future Appointments Appointment Date:07/10/2024 12:15:00 PM Scheduled Provider: Location:[facility] Appointment Type:Surgery FT Appointment Date:07/23/2024 01:15:00 PM Scheduled Provider:Agustín Manjarrez MD Location:[facility] Appointment Type:[facility] Follow Up Future Scheduled TestsNM Hepatobiliary Duct System Imaging w/EF 06/25/24 [facility] Evaluation + Plan note Note Date & Type Note Facility Evaluation + Plan note Future Appointments Appointment Date:07/23/2024 01:15:00 PM Scheduled Provider:Agustín Manjarrez MD Location:[facility] Appointment Type:BAD Follow Up [facility] Hospital Discharge instructions Note Date & Type Note Facility Hospital Discharge instructions No data available for this section [facility] Progress note Note Date & Type Note Facility Progress note No data available for this section [facility] Summary Purpose Family History No Family History Records Found No data available for this section No data available for this section No data available for this section No Family History Records Found No data available for this section No data available for this section No Family History Records FoundNo Family History Records Found Advance Directives No Advanced Directives Records FoundNo Advanced Directives Records FoundNo Advanced Directives Records FoundNo Advanced Directives Records Found Additional Source Comments (unrecognized sect ion and content) No Status Records FoundNo Status Records FoundNo Status Records FoundNo Status Records Found INFORMATION SOURCE (unrecogn ized section and content) DATE CREATED AUTHOR 02/25/2019 Simran Modestomike mcguire DATE CREATED AUTHOR AUTHOR'S ORGANIZ ATION 07/16/2024 [facility] DATE CREATED AUTHOR AUTHOR'S ORGANIZ ATION 07/24/2024 [facility] DATE CREATED AUTHOR AUTHOR'S ORGANIZ ATION 07/28/2024 [facility] Patient Care team informatio n (unrecognized section and content) Personnel Name: Loreto Sosa Address: Address: [address] [place] [address]- Personnel Name: Loreto Sosa Address: Address: [address] [place] [address]- Personnel Name: Loreto Sosa Address: Address: [address] [place] [address]- Personnel Name: Loreto Sosa Address: Address: [address] [place] [address]- Personnel Name: Loreto Sosa Address: Address: [address] [place] [address]- FOR RECORDS PERTAINING TO PATIENTS WHO ARE [...] BE BASED ON THE PRIMARY CLINICAL RECORDS. [facility] [employer] [facility]. provides no warranty or guarantee of the accuracy or completeness of information in this document.
[2025-02-08 18:11] LABS: Bilirubin Urine SMALL (NEGATIVE); Blood Urine NEGATIVE (NEGATIVE); Clarity Urine CLEAR (CLEAR); Color Urine YELLOW (YELLOW); Glucose Urine UA NEGATIVE (NEGATIVE); Ketones Urine TRACE mg/dL (NEGATIVE); Leukocyte Esterase Urine TRACE (NEGATIVE); Nitrite Urine NEGATIVE (NEGATIVE); Protein Urine TRACE mg/dL (NEG/TRACE); Specific Gravity Urine 1.015 (1.005-1.025)
[2025-02-08 18:19] LABS: Urine Microscopic Indicated YES
[2025-02-08 18:20] LABS: RBC Urine 0-2 #/HPF (0-2); WBC Urine 0-2 #/HPF (NONE SEEN)
[2025-02-08 18:21] LABS: Bacteria Urine SMALL #/HPF (NONE SEEN); Cast Seen? NONE SEEN #/LPF (NONE SEEN); Crystals Seen? None Seen #/HPF (None Seen); Mucus Urine LARGE (NONE SEEN); Squamous Epithelial Cell Urine FEW #/LPF (NONE/RARE); Urine Culture Indicated YES-FRMC
--- NOTE | 2025-02-08 18:27 | ED_ITS ---
HPI - Male Genitourinary General Chief complaint: Urogenital-Male Stated complaint: PAIN WHEN URINATING, LOWER BACK PAIN Time Seen by Provider: 02/08/25 17:58 Source: patient Mode of arrival: walk-in Limitations: no limitations History of Present Illness HPI Narrative: The patient is coming to the ER with a burning with urination that he has noticed for the last few days, no blood in urine no discharge and there is frequency The patient mentioned when asked about his risk of STD it is less likely Related Data Home Medications ?Medication ?Instructions ?Recorded ?Confirmed omeprazole 40 mg capsule,delayed 40 mg PO Q8H 02/08/25 02/08/25 release Previous Rx's ?Medication ?Instructions ?Recorded doxycycline hyclate 100 mg capsule 100 mg PO BID 7 day s #14 caps 02/08/25 Allergies Allergy/AdvReac Type Severity Reaction Status Date / Time No Known Drug Allergies Allergy Verified 05/31/24 03:20 Review of Systems ROS Status of ROS 10 or more systems reviewed and unremark able except as noted in history and below PFSH PFSH Social History Little interest or pleasure in doing things: not at all Feeling down, depressed, or hopeless: not at all Exam Narrative Exam Narrative: Nurses notes and vital signs reviewed and patient is not hypoxic. General: Well-appearing and in no apparent distress. Skin: Warm, dry, no pallor noted. No rash. Head: Normocephalic, atraumatic. Neck: Supple, non-tender. GI: Abdomen is soft, non-distended. Normal bowel sounds. No masses appreciated. No tenderness to palpation. No rebound, guarding, or rigidity noted. Neurological: A&O x4. No cranial nerve dysfunction observed. No truncal ataxia. Moves all extremities. Sensation intact. Psychiatric: Cooperative and interactive. Normal mood and affect. Constitutional Vital Signs, click to edit/add: Last Vital Signs Temp 98.5 F 02/08/25 17:54 Pulse 95 H 02/08/25 17:54 Resp 20 02/08/25 17:54 BP 144/96 H 02/08/25 17:54 Pulse Ox 98 02/08/25 17:54 Course Vital Signs Vital signs: Vital Signs Temperature 98.5 F 02/08/25 17:54 Pulse Rate 95 H 02/08/25 17:54 Respiratory Rate 20 02/08/25 17:54 Blood Pressure 144/96 H 02/08/25 17:54 Pulse Oximetry 98 02/08/25 17:54 Temperature 98.5 F 02/08/25 17:54 Pulse Rate 95 H 02/08/25 17:54 Respiratory Rate 20 02/08/25 17:54 Blood Pressure 144/96 H 02/08/25 17:54 Pulse Oximetry 98 02/08/25 17:54 MDM - Male Genitourinary MDM Narrative Medical decision making narrative: The patient urinalysis is not positive for UTI Right now the patient's urine will be sent for chlamydia and gonorrhea testing in addition to a culture Due to the patient age and risk factors he will be covered for possible urethritis with doxycycline and ceftriaxone The patient is to follow up with primary care physician in next 2-3 days or to return to the emergency department should any of the signs or symptoms worsen or new symptoms develop. The patient agrees with the following Diagnosis and T reatment plan and the patient will be discharged home. Lab Data Labs: Lab Results 02/08/25 Range/Units 18:04 Urine Color Yellow (YELLOW) Urine Clarity Clear (CLEAR) Urine pH 7.0 (5.0-9.0) Ur Specific Merrill 1.015 (1.005-1.025) Urine Protein Trace (NEG/TRACE) mg/dL Urine Glucose (UA) Negative (NEGATIVE) mg/dL Urine Ketones Trace A (NEGATIVE) mg/dL Urine Occult Blood Negative (NEGATIVE) Urine Nitrite Negative (NEGATIVE) Urine Bilirubin Small A (NEGATIVE) Urine Urobilinogen 1.0 (0.2-1.0) EU/dL Ur Leukocyte Esterase Trace A (NEGATIVE) Urine RBC 0-2 (0-2) #/HPF Urine WBC 0-2 A (NONE SEEN) #/HPF Ur Squamous Epith Cells Few A (NONE/RARE) #/LPF Urine Crystals None seen (None Seen) #/HPF Urine Bacteria Small A (NONE SEEN) #/HPF Urine Casts None seen (NONE SEEN) #/LPF Urine Mucus Large A (NONE SEEN) Ur Culture Indicated? Yes-[facility] [place] Discharge Plan Discharge Chief Complaint: Urogenital-Male Clinical Impression: Urethritis Patient Disposition: Home, Self-Care Time of Disposition Decision: 18:32 Condition: Good Prescriptions / Home Meds: New doxycycline hyclate 100 mg capsule 100 mg PO BID 7 Days Qty: 14 0RF No Action omeprazole 40 mg capsule,delayed release(DR/EC) 40 mg PO Q8H Print Language: Indonesian Instructions: Urethritis (ED) Referrals: DAYLIN SANCHEZ [Primary Care Provider, MARKETING SERVICES MANAGER] - 1 week
[2025-02-08] MEDS: CEFTRIAXONE 500 MG VIAL IM (18:35)
[2025-02-08 18:39] VITALS: BP 128/88; PULSE 90; O2SAT 98
[2025-02-11 02:07] LABS: Neisseria gonorrhoeae, NAA Negative (Negative)
== END 2025-02-08 18:40 | disposition home or self-care (01) ==
PROVIDERS: Emergency Provider Emergency Medicine; PCP Nurse Practitioner
DX: N34.2 Other urethritis (principal)
CPT/HCPCS: 81001; 87086; 87491; 87591; 96372; 99285; J0696